=== PATIENT | male | born 1965 | race Caucasian/White ===

== ENCOUNTER 2020-01-21 11:13 | Outpatient (REF) | payer OTHER, SELFPAY | END 2020-01-21 11:14 | disposition home or self-care (01) | LOC: HO.LAB 11:13 | PROVIDERS: Visit Provider Internal Medicine | DX: Z20.828 Contact with and (suspected) exposure to other viral communicable diseases (principal) | CPT/HCPCS: 87635 ==

== ENCOUNTER 2020-05-13 06:06 | Outpatient (REF) | payer OTHER, SELFPAY ==
[2020-05-13 07:17] LABS: MANUAL DIFF FLAG NO
[2020-05-13 07:20] LABS: Basophils Percent Auto 0.5 % (0-2); Eosinophils Absolute Auto 0.1 X10*3/uL (0.0-0.4); Eosinophils Percent Auto 1.7 % (0-4); Hematocrit 46.5 % (42-52); Hemoglobin 14.9 g/dl (14.0-18.0); Imm Gran Abs Auto 0.01 X10*3/uL (0.00-0.03); Imm Gran Pct Auto 0.1 % (0.0-0.4); Lymphocytes Absolute Auto 2.4 X10*3/uL (1.2-4.9); Lymphocytes Percent Auto 30.1 % (20-40); Mean Corpuscular Hemoglobin 26.1 pg (27.0-33.0); Mean Corpuscular Volume 81.6 fL (80-98); Mean Platelet Volume 9.3 fL (9.4-12.4); Monocytes Absolute Auto 0.8 X10*3/uL (0.1-1.2); Monocytes Percent Auto 10.1 % (2-11); Neutrophils Absolute Auto 4.5 X10*3/uL (2.0-8.3); Neutrophils Percent Auto 57.5 % (45-73); Platelet Count 315 X10*3/uL (160-400); Red Cell Distribution Width 12.9 % (11.0-16.0); White Blood Count 7.8 X10*3/uL (4.8-10.8)
[2020-05-13 07:47] LABS: Creatinine Urine 213.44 mg/dL; Microalbum/Creatinine Ratio Ur 20.6 ug/mg cr
[2020-05-13 07:50] LABS: Alanine Aminotransferase 17 U/L (0-40); Albumin Level 4.4 g/dL (3.5-5.0); Alkaline Phosphatase 100 U/L (39-117); Anion Gap 10 (12-20); Aspartate Amino Transferase 16 U/L (5-37); Bilirubin Total 0.7 mg/dL (0.0-1.0); Blood Urea Nitrogen 15 mg/dL (9-16); Calcium 9.1 mg/dL (8.4-10.2); Carbon Dioxide 32 mmol/L (22-29); Chloride 99 mmol/L (96-108); Cholesterol 164 mg/dL; Estimated Glomerular Filt Rate > 60; Glucose Random 248 mg/dL (60-115); HDL Cholesterol 41 mg/dL; LDL Cholesterol Calculated 92 mg/dl; Potassium 4.3 mmol/L (3.3-5.1); Sodium 137 mmol/L (135-145); Total Protein 7.2 g/dL (6.5-8.0); Triglycerides 159 mg/dL
[2020-05-13 08:13] LABS: Free T4 (Free Thyroxine) 0.93 ng/dL (0.71-1.85); Prostate Specific Antigen Scr 0.25 ng/mL (<0.05-4.0); Thyroid Stimulating Hormone 1.96 uIU/mL (0.32-4.0)
== END 2020-05-13 06:07 | disposition home or self-care (01) ==
LOC: HO.LAB 06:06
PROVIDERS: Visit Provider Internal Medicine
DX: E11.65 Type 2 diabetes mellitus with hyperglycemia (principal); E78.00 Pure hypercholesterolemia, unspecified; R41.89 Other symptoms and signs involving cognitive functions and awareness
CPT/HCPCS: 36415; 80053; 80061; 82043; 84153; 84439; 84443; 85025

== ENCOUNTER 2020-05-29 07:23 | Outpatient (REF) | payer OTHER, SELFPAY ==
--- NOTE | ~2020-05-29 | CT_ITS ---
EXAMINATION: CT HEAD WITHOUT CONTRAST CLINICAL INFORMATION: Symptoms involving cognitive function. COMPARISON: None TECHNIQUE: Contiguous axial imaging was performed from the skull base to vertex without intravenous administration of contrast. This CT examination was performed using dose optimization techniques as appropriate, variously including the following: *Automated exposure control *Adjustment of mA and/or kV according to patient size (this includes techniques or standardized protocols for targeted exams where dose is matched to indication/reason for exam; i.e. extremities or head) *Use of iterative reconstruction technique DLP: 835 mGy-cm FINDINGS: There is no evidence of acute intracranial hemorrhage or territorial infarction. No abnormal mass effect or midline shift is seen. Mckenzie to white matter differentiation is well preserved. No extra-axial fluid collections are identified. No acute calvarial fracture. The mastoid air cells and visualized portions of the paranasal sinuses are well aerated. CT/CT head/brain wo con IMPRESSION: No CT evidence of acute intracranial pathology.
== END 2020-05-29 07:24 | disposition home or self-care (01) ==
LOC: HO.CT 07:23
PROVIDERS: Visit Provider Internal Medicine
DX: R41.89 Other symptoms and signs involving cognitive functions and awareness (principal)
CPT/HCPCS: 70450

== ENCOUNTER 2020-06-25 09:23 | Outpatient (REF) | payer OTHER, SELFPAY | END 2020-06-25 09:24 | disposition home or self-care (01) | LOC: HO.LAB 09:23 | PROVIDERS: Visit Provider Internal Medicine | DX: Z20.822 Contact with and (suspected) exposure to COVID-19 (principal) | CPT/HCPCS: 36415; C9803; U0003; U0005 ==

== ENCOUNTER 2024-07-17 13:01 | Outpatient (AMB) | payer OTHER, SELFPAY ==
--- NOTE | 2024-07-17 13:07 | MHC.OFFWIV ---
Intake Vital Signs 07/17/24 13:08 Weight 148 lb BP 150/80 H Blood Pressure Location Lt brachial Position Sitting Pulse 74 Pulse Source Pulse Oximeter Pulse Oximetry (%) 97 Oxygen Delivery Method Room Air Intake Visit Reasons: EP Flashing in rt peripheral vision Intake Note: Patient here becaause he has been seeing flashes out of right eye for two days. Patient Tobacco Use Status: Never used Tobacco Allergies No Known Allergies Allergy (Unverified 12/19/19 14:49) pt states no food/medication a Allergy (Unknown, Uncoded 08/22/17 00:00) Do you need a note to return to daycare/school/sports/work: No HPI HPI Comments History of Present Illness Details He presents to office with vision changes Onset Monday He said St and Monday + headache. Took tylenol and was able to sleep He said minimal pain posterior head; approx 4/10 Patient noticed shorty after waking up colorful streaking to R lateral peripheral vision Constant with intermittent flashing He said he sees movements only on R lateral peripheral vision No complete vision loss Denies dizziness No congestion, ST, cough, CP or SOB PCP is Dr. Griffin No other specialists Has hx of diabetes; has been off medications for 6 years due to insurance and cost reasons Last saw PCP in 2019 telehealth. Has yet to be seen again Has not checked sugar in 6 years In office, POC [address] [facility] Medical History (Updated 07/17/24 @ 13:38 by Becky Christian PA-C) Obstructive sleep apnea Vitamin D deficiency Type 2 diabetes mellitus with hyperglycemia Anxiety and depression Psoriasis Hypercholesterolemia Surgical History (Updated 05/12/20 @ 11:46 by David Griffin MD) History of cataract surgery History of gastric bypass Social History (Updated 05/26/20 @ 11:35 by Olive Valverde CMA) Alcohol intake: never Patient Tobacco Use Status: Never used Tobacco Physical Exam Vital Signs: Last Vital Signs Pulse 74 07/17/24 13:08 BP 150/80 H 07/17/24 13:08 Pulse Ox 97 07/17/24 13:08 Oxygen Delivery Method Room Air 07/17/24 13:08 General: Non-toxic, NAD. Speaking full sentences. Skin: Warm dry throughout Eye: PERRL, EOMI. I attempted a limited non-dilated funduscopic exam and it revealed intact red reflex bilaterally. There appeared to be dilated vessels R eye but I did not appreciate any cotton wool spots of retinal hemorrhage or AV nicking. L eye revealed no obvious abormality HENT: Airway patent. Uvula midline. No pharyngeal erythema or edema. 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 Bilateral canals clear. TM non-erythematous, non-bulging. No TM perforation or hemotympanum noted. Respiratory: CTA bilaterally. No wheezes, rales or rhonchi Cardiac: RRR. No murmur Neurology: A/O. CN 2-12 grossly intact. Able to maintain balance with Rhomberg. Negative pronator drift. Able to complete finger to nose tracing bilaterally but R side pt felt that it was more difficult due to floaters seen. No aphasia or facial droop. 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 strength Gait without abnormality Psych: Good mood and affect Results AMB Random Glucose (hemocue) AMB Random Glucose (hemocue) 356 mg/dL Last Edit by Eddie Mac CCM on 07/17/24 14:05 AMB Urinalysis, Automated UA Leukoctes 0 Pilo/uL Last Edit by Eddie Mac [facility] on 07/17/24 14:07 UA Nitrite Negative Last Edit by Eddie Mac [facility] on 07/17/24 14:07 UA Urobilinogen 0.2 mg/dL Last Edit by Eddie Mac [facility] on 07/17/24 14:07 UA Protein 0 mg/dL Last Edit by Eddie Mac [facility] on 07/17/24 14:07 UA pH 6.0 Last Edit by Eddie Mac [facility] on 07/17/24 14:07 UA Blood 0 Samir/uL Last Edit by Eddie Mac [facility] on 07/17/24 14:07 UA Specific Romney 1.010 Last Edit by Eddie Mac [facility] on 07/17/24 14:07 UA Ketone Negative Last Edit by Eddie Mac [facility] on 07/17/24 14:07 UA Bilirubin 0 mg/dL Last Edit by Eddie Mac [facility] on 07/17/24 14:07 UA Glucose 1000 mg/dL Last Edit by Eddie Mac [facility] on 07/17/24 14:07 Assessment & Plan Assessment & Plan (1) Hyperglycemia: Code(s): R73.9 - Hyperglycemia, unspecified Plan: Pt is an uncontrolled diabetics off meds x 6 years He has baseline neuropathy which he said is worsening POC is 356 in office and urine is without ketones but + glucose He has not seen PCP in 4 years and was told he needed a new pt visit in March 2025. (2) Vision changes: Code(s): H53.9 - Unspecified visual disturbance Plan: Pt has been seen at [facility] for [facility] exam 6 mo ago I called Dr. Jose office for patient evaluation but they refused to see him because he no showed to their office and was discharged Pt states he used to get eye injections at [facility]. I called their office. They have not seen pt in their office in 3 years. They only accept acute visits from ophthalmologists with retinal diagnosis. They have Dr. Ohara listed as his primary eye physician. They said he needs to be seen by his primary eye MD before seeing them for acute visit. I called Dr Ohara office and they states they have not seen the patient before. I called [facility] in [place] spoke with Elisha; who said the patient is registered with them but has yet to be seen. They are located at [address] [facility], He has an appointment with them tomorrow 12:55 with MD (I gave pt work note excusing him from work tomorrow) Pt given location and time information for appoitment tomorrow and advised to bring photo ID and insurance card Fax number is [phone] and will fax this note when complete Pt and I had a long discussion in regards to his personal health journey. He agrees that he put off his health post covid due to frustration but is looking to get established back with care He is aware of how serious his eye complaint issue is and the urgent need to be seen I told pt is he did not accept appiintment tomorrow I would have sent him to ER or had him sign AMA due to need for evaluation He is aware and will monitor for loss of vision, confusion, weakness, dizziness, worsening headache,vomiting, CP or any worsening symptoms discussed and go immediately to ER Discussed he should not be driving due to medical reasons for concern of impaired vision and possibility of crash. He gave verbal understanding All questions answered at time of discharge (3) Hypertension: Code(s): I10 - Essential (primary) hypertension Qualifiers: Hypertension type: unspecified Qualified Code(s): I10 - Essential (primary) hypertension Plan: Pt informed of BP in office. Discussed serious complications of uncontrolled HTN such as CVA and [place]. Pt aware Message sent to safety and security officer in Dr Griffin office to try to get patient in sooner Coding Level of Care Code Est Pt Level 4 (48771) Diagnoses Hyperglycemia R73.9 Vision changes H53.9 Hypertension, unspecified type I10 Hypertension type: unspecified
[2024-07-17 13:08] VITALS: BP 150/80; PULSE 74; O2SAT 97
== END 2024-07-17 14:51 | disposition home or self-care (01) ==
PROVIDERS: Visit Provider Physician Assistant
DX: R73.9 Hyperglycemia, unspecified (principal); H53.9 Unspecified visual disturbance; I10 Essential (primary) hypertension; Z13.9 Encounter for screening, unspecified

== ENCOUNTER → 2024-07-17 13:01 | Outpatient (BNVA) | payer OTHER, SELFPAY | PROVIDERS: Visit Provider Physician Assistant | DX: H53.9 Unspecified visual disturbance (principal); E11.9 Type 2 diabetes mellitus without complications; I10 Essential (primary) hypertension | CPT/HCPCS: 81003; 82948 ==

== ENCOUNTER 2024-07-17 21:10 | Emergency (ER) | payer OTHER, SELFPAY ==
--- NOTE | 2024-07-17 | ECG_ITS ---
Test Reason : HTN Blood Pressure : */* mmHG Vent. Rate : 78 BPM Atrial Rate : 78 BPM P-R Int : 180 ms QRS Dur : 94 ms QT Int : 368 ms P-R-T Axes : 35 7 32 degrees QTcB Int : 419 ms Normal sinus rhythm Normal ECG When compared with ECG of 04-May-2016 09:48, No significant change was found Referred By: Generic ED Physician Electronically Signed By: ROSALES PARKER MD
--- NOTE | ~2024-07-17 | CT_ITS ---
CLINICAL HISTORY: headache CT head without contrast Comparison: None Findings: Mild generalized cerebral and cerebellar atrophy. The size and shape of the ventricular system is within normal limits for this degree of atrophy. Mild areas of low-attenuation are seen within the periventricular and deep white matter, especially adjacent to the frontal horn of the right lateral ventricle. Area of low attenuation along the left aspect of the cerebellum suggesting encephalomalacia. Mcknezie-white differentiation is otherwise well preserved. No midline shift or mass effect. No intracranial hemorrhage. No acute calvarial lesions. IMPRESSION: Chronic changes as above. No acute intracranial finding. This document has been electronically signed by: Sam Infante MD on 07/18/2024 01:06:22
[2024-07-17 21:13] VITALS: BP 176/98; PULSE 79; RESP 16; TEMP 36; O2SAT 99; BMI 25.4
--- NOTE | 2024-07-17 21:23 | PC.NURSE ---
strength equal and strong BUE, BLE. no focal deficits/droop noted. daughter concerned for gait/slurred speech not noted in triage. Dr Prajapati made aware of sx. rn physician office aware. blood work/ekg being obtained in triage and pt will be in ed22 after.
[2024-07-17 21:33] LABS: MANUAL DIFF FLAG NO
[2024-07-17 21:35] LABS: Glucose, Whole Blood 421 mg/dL (60-115)
[2024-07-17 21:35] LABS: Basophils Percent Auto 0.5 % (0-2); Eosinophils Absolute Auto 0.1 X10*3/uL (0.0-0.4); Hematocrit 43.3 % (42.0-52.0); Hemoglobin 14.3 g/dl (14.0-18.0); Imm Gran Abs Auto 0.02 X10*3/uL (0.00-0.03); Imm Gran Pct Auto 0.3 % (0.0-0.4); Lymphocytes Absolute Auto 2.8 X10*3/uL (1.2-4.9); Lymphocytes Percent Auto 36.2 % (20-40); Mean Corpuscular Hemoglobin 25.5 pg (27.0-33.0); Mean Corpuscular Volume 77.2 fL (80.0-98.0); Monocytes Absolute Auto 0.7 X10*3/uL (0.1-1.2); Monocytes Percent Auto 8.9 % (2-11); Neutrophils Absolute Auto 4.2 x10*3/uL (2.0-8.3); Neutrophils Percent Auto 53.1 % (45-73); Platelet Count 307 X10*3/uL (160-400); Red Blood Count 5.61 X10*6/uL (4.60-5.80); Red Cell Distribution Width 13.1 % (11.0-16.0); White Blood Count 7.9 X10*3/uL (4.8-10.8)
--- NOTE | 2024-07-17 21:46 | PC.NURSE ---
pt reporting numbness and tingling in feet bilateral. no meds for diabetes for 6 years. too expensive. POC >400. no hx of headaches/migraines. feels unsteady on feet, compensation for moving vision
[2024-07-17 21:52] LABS: Alanine Aminotransferase 20 U/L (0-40); Albumin Level 4.3 g/dL (3.5-5.0); Alkaline Phosphatase 149 U/L (39-117); Anion Gap 13 (12-20); Aspartate Amino Transferase 17 U/L (5-37); Bilirubin Total 0.3 mg/dL (0.0-1.0); Blood Urea Nitrogen 12 mg/dL (9-16); Carbon Dioxide 25 mmol/L (22-29); Chloride 100 mmol/L (96-108); Creatinine Clr Calc Pharmacy 70.5; Estimated Glomerular Filt Rate > 60; Glucose Random 468 mg/dL (60-115); Sodium 134 mmol/L (135-145); Total Protein 7.3 g/dL (6.5-8.0)
[2024-07-17 21:59] LABS: Troponin-I High Sensitivity < 2.7 ng/L (<3.5-35.0)
--- NOTE | 2024-07-17 23:31 | ED.GENADULT ---
HPI - General Adult General Chief complaint: General Medical Stated complaint: changes in vision, high bp and blood sugar Time Seen by Provider: 07/17/24 23:31 History of Present Illness ED Provider: Marta BRITTON narrative: The patient is a 58-year-old male with a history of type 2 diabetes who has been off his medications for about 2 or 3 years. He used to be on metformin and insulin. He says that during COVID he became discouraged with regard to his health and stopped seeing doctors and stopped taking any medications. Last weekend he has a headache on Monday and Monday. Three days ago on Monday the headache was somewhat better but he started to experience flashing lights in his right peripheral vision which he thinks are originating from his right eye. He says that his visual problems over the last few days has been intermittent flashing in the right half of his vision. If he covers his right eye he still feels that he sees the flashes in darkness. He does not feel that his vision is impaired otherwise accept that the flashing lights interfere with the his ability to see things on the right side of his field of vision in his right eye. His left eye vision seems fine according to him. He has had a headache but no neck stiffness. He has had no fever, sweats, chills. No cough or sputum. Earlier today the patient went to an urgent care appointment here at the hospital. He was evaluated with regard to his visual symptoms. The provider who saw him clearly made a great deal of effort to try to get the patient seen by an hydraulic specialist. Ultimately they succeeded in getting the patient an appointment on July 18 at the [facility] in [place] at 12:55 PM. Related Data Previous Rx's ?Medication ?Instructions ?Recorded flash glucose scanning reader #1 ea 05/12/20 (FreeStyle Roberto 14 Day [place]) flash glucose sensor (FreeStyle #6 ea 05/12/20 Roberto 14 Day Sensor kit) pen needle, diabetic 31 gauge x #100 ea 07/07/2006/16 (BD Ultra-Fine Mini Pen Needle) metformin 500 mg tablet 500 mg PO BID #60 tabs 07/18/24 Allergies Allergy/AdvReac Type Severity Reaction Status Date / Time No Known Allergies Allergy Verified 07/17/24 21:16 Review of Systems Review of Systems: Yes all other systems are reviewed and are negative PMFSH Past Medical History Medical History (Updated 07/18/24 @ 03:20 by Chetan Lozano MD) Obstructive sleep apnea Vitamin D deficiency Type 2 diabetes mellitus with hyperglycemia Anxiety and depression Psoriasis Hypercholesterolemia Surgical History (Updated 05/12/20 @ 11:46 by David Griffin MD) History of cataract surgery History of gastric bypass Social History Social History (Updated 05/26/20 @ 11:35 by Olive Valverde CMA) Alcohol intake: never Patient Tobacco Use Status: Never used Tobacco Physical Exam ED Vital Signs: Vital Signs - 24 hr 07/17/24 21:13 07/18/24 00:01 07/18/24 02:19 Temperature 96.8 F 98.6 F 98.4 F Pulse Rate 79 76 72 Respiratory Rate 16 18 16 Blood Pressure 176/98 H 143/83 H 133/76 Pulse Oximetry 99 96 97 Oxygen Delivery Method Room Air Room Air Room Air 07/18/24 03:33 07/18/24 03:33 Temperature 98.0 F 98.0 F Pulse Rate 78 78 Respiratory Rate 18 18 Blood Pressure 152/82 H 152/82 H Pulse Oximetry 97 97 Oxygen Delivery Method Room Air Room Air BMI result Body Mass Index 25.4 Const Other: The patient is awake and alert. He is a chronically ill-appearing 58-year-old but he does not appear obviously acutely ill. He is pleasant and cooperative. He is in no respiratory distress and although he is complaining of headache he does not seem in obvious discomfort. He is ambulatory without difficulty. HENMT Other: The face is symmetrical. Mucous membranes are moist. The posterior pharynx is unremarkable. Eyes Other: Pupils are round, equal, and reactive to light. Visual acuity is 20/30 in the right eye and 20/25 in the left eye. Extraocular movements are intact. Visual field testing revealed what I thought might be a variable decreased perception of the lateral visual field of the right eye. Neck Neck: Yes normal visual inspection, Yes full ROM, Yes no lymphadenopathy, Yes no meningeal signs and Yes no JVD Resp Effort & Inspection: normal respiratory effort and prolonged expiratory phase Cardio Rate: regular rate Rhythm: regular rhythm Heart sounds: S1 normal heart sound present and S2 normal heart sound present GI Other: Abdomen is soft and nontender Skin Other: Skin is pale and dry Neuro Other: The patient is awake and alert with a normal mental status. He is pleasant and cooperative. He is complaining of a headache but he does not appear in distress and he has a supple neck. Pupils are round equal. Extraocular movements are intact. The patient seems to have some variably diminished vision in the lateral visual field of the right eye. The patient seems to say that when he has a lot of flashes and floaters his ability to perceive the lateral visual field with the right eye is diminished. He seems to have no difficulty with the the left eye with regard to his visual becker. Strength is symmetrical in his extremities. There is no pronator drift. His gait is steady. Finger-nose testing is normal. General: no meningeal signs Extrem Other: No peripheral edema Medications Administered Discontinued Medications Generic Name Dose Route Start Last Admin Trade Name Freq PRN Reason Stop Dose Admin Diphenhydramine HCl 25 mg 07/18/24 00:00 07/18/24 00:13 Diphenhydramine Hcl 50 Mg/Ml Vial IVPUSH 07/18/24 00:01 25 mg ONCE ONE Administration Sodium Chloride 1,000 mls @ 999 mls/hr 07/17/24 23:45 07/18/24 01:31 Ns IV 07/18/24 00:45 Infused .Q1H1M KYLER Infusion Sodium Chloride 1,000 mls @ 999 mls/hr 07/18/24 01:30 07/18/24 03:26 Ns IV 07/18/24 02:30 Infused .Q1H1M KYLER Infusion Ketorolac Tromethamine 10 mg 07/18/24 01:30 07/18/24 02:18 Ketorolac Tromethamine 15 Mg/Ml Vial IVPUSH 07/18/24 01:31 10 mg ONCE ONE Administration Metoclopramide HCl 10 mg 07/18/24 00:00 07/18/24 00:14 Metoclopramide Hcl 10 Mg/2 Ml Vial IVPUSH 07/18/24 00:01 10 mg ONCE ONE Administration Medical Decision Making Medical Decision Making [facility] Narrative: The patient is a 58-year-old male with a history of type 2 diabetes who has avoided all medical care and medication for proximally 3 or 4 years. In the past he has been on insulin and metformin for glucose control. The patient presents complaining of a headache and also flashes and floaters in the lateral visual field of the right eye. The flashes and floaters has been present for 2-3 days. The headache has been present for about 5 days. The patient is hyperglycemic but I suspect he has been hyperglycemic for some time given his lack of any treatment for his longstanding type 2 diabetes. The patient has a good visual acuity in the right eye but he seems to have some decreased vision in the lateral visual becker. The patient's description of his symptoms suggests that he might have a retinal detachment or vitreous hemorrhage but a bedside ultrasound did not show any obvious signs of either a detached retina or any debris in the vitreous. The patient has a headache that responded to treatment with metoclopramide, diphenhydramine, and ketorolac. A head CT is negative. The patient was given IV fluids to address his hyperglycemia. His blood sugar came down after the 1 L. I then ordered a 2 L but the patient ate a meal while the 2 L was infusing and the patient's blood sugar went up again. My overall impression is that the patient's blood sugar has probably been chronically high for some time. I will represcribe metformin for him. The patient has an ophthalmology appointment in several hours later today on . He will be discharged with instructions to clam picker his prescription for metformin and begin this medication in morning and to make sure he keeps the ophthalmology appointment. He should also do his best to follow up with his PCP, Dr. David Griffin, to resume flow restorationism of his medications for his chronic medical conditions. Lab Data 07/17/24 21:27 07/17/24 21:27 Labs: Lab Results 07/17/24 07/17/24 07/18/24 Range/Units 21:20 21:27 01:35 WBC 7.9 (4.8-10.8) X10*3/uL RBC 5.61 (4.60-5.80) X10*6/uL Hgb 14.3 (14.0-18.0) g/dl Hct 43.3 (42.0-52.0) % MCV 77.2 L (80.0-98.0) fL MCH 25.5 L (27.0-33.0) pg MCHC 33.0 (31.0-36.0) g/dl RDW 13.1 (11.0-16.0) % Plt Count 307 (160-400) X10*3/uL MPV 9.0 L (9.4-12.4) fL Immature Gran % (Auto) 0.3 (0.0-0.4) % Neut % (Auto) 53.1 (45-73) % Lymph % (Auto) 36.2 (20-40) % [place] % (Auto) 8.9 (2-11) % Eos % (Auto) 1.0 (0-4) % Baso % (Auto) 0.5 (0-2) % Lymph # (Auto) 2.8 (1.2-4.9) X10*3/uL [place] # (Auto) 0.7 (0.1-1.2) X10*3/uL Eos # (Auto) 0.1 (0.0-0.4) X10*3/uL Baso # (Auto) 0.0 (0.0-0.2) X10*3/uL Abs Immat Gran (auto) 0.02 (0.00-0.03) X10*3/uL Absolute Neuts (auto) 4.2 (2.0-8.3) x10*3/uL Absolute Nucleated RBC 0.000 (0.0-0.012) X10*3/uL Nucleated RBC % (auto) 0.0 (0.0-0.2) /100WBC Sodium 134 L (135-145) mmol/L Potassium 4.0 (3.3-5.1) mmol/L Chloride 100 (96-108) mmol/L Carbon Dioxide 25 (22-29) mmol/L Anion Gap 13 (12-20) BUN 12 (9-16) mg/dL Creatinine 1.03 (0.5-1.4) mg/dL Estim Creat Clear Calc 70.5 Estimated GFR > 60 POC Glucose 421 H* 292 H (60-115) mg/dL Random Glucose 468 H* (60-115) mg/dL Calcium 9.0 (8.4-10.2) mg/dL Total Bilirubin 0.3 (0.0-1.0) mg/dL AST 17 (5-37) U/L ALT 20 (0-40) U/L Alkaline Phosphatase 149 H (39-117) U/L Troponin I High Sens < 2.7 (<3.5-35.0) ng/L Total Protein 7.3 (6.5-8.0) g/dL Albumin 4.3 (3.5-5.0) g/dL 07/18/24 Range/Units 03:22 WBC (4.8-10.8) X10*3/uL RBC (4.60-5.80) X10*6/uL Hgb (14.0-18.0) g/dl Hct (42.0-52.0) % MCV (80.0-98.0) fL MCH (27.0-33.0) pg MCHC (31.0-36.0) g/dl RDW (11.0-16.0) % Plt Count (160-400) X10*3/uL MPV (9.4-12.4) fL Immature Gran % (Auto) (0.0-0.4) % Neut % (Auto) (45-73) % Lymph % (Auto) (20-40) % [place] % (Auto) (2-11) % Eos % (Auto) (0-4) % Baso % (Auto) (0-2) % Lymph # (Auto) (1.2-4.9) X10*3/uL [place] # (Auto) (0.1-1.2) X10*3/uL Eos # (Auto) (0.0-0.4) X10*3/uL Baso # (Auto) (0.0-0.2) X10*3/uL Abs Immat Gran (auto) (0.00-0.03) X10*3/uL Absolute Neuts (auto) (2.0-8.3) x10*3/uL Absolute Nucleated RBC (0.0-0.012) X10*3/uL Nucleated RBC % (auto) (0.0-0.2) /100WBC Sodium (135-145) mmol/L Potassium (3.3-5.1) mmol/L Chloride (96-108) mmol/L Carbon Dioxide (22-29) mmol/L Anion Gap (12-20) BUN (9-16) mg/dL Creatinine (0.5-1.4) mg/dL Estim Creat Clear Calc Estimated GFR POC Glucose 420 H* (60-115) mg/dL Random Glucose (60-115) mg/dL Calcium (8.4-10.2) mg/dL Total Bilirubin (0.0-1.0) mg/dL AST (5-37) U/L ALT (0-40) U/L Alkaline Phosphatase (39-117) U/L Troponin I High Sens (<3.5-35.0) ng/L Total Protein (6.5-8.0) g/dL Albumin (3.5-5.0) g/dL Discharge Plan Discharge Clinical Impression: Vision changes, Hyperglycemia, Headache, Type 2 diabetes mellitus Patient Disposition: Home, Self-Care Additional Instructions: Please keep your appointment with the eye doctor this afternoon as scheduled. I believe this is [facility] at [address] [place] [address], at 12:55 PM. Please get their a little early. I have sent a prescription for metformin to your pharmacy. Please start taking this later today. Please stay in touch with Dr. Griffin's office to get a follow up appointment to get back on all of your regular medications. Return to the emergency room if significantly worse. Prescriptions: New metformin 500 mg tablet 500 mg PO BID Qty: 60 0RF No Action (DME) pen needle, diabetic [BD Ultra-Fine Mini Pen Needle] 31 gauge x 3/16 needle See Rx Instructions .ROUTE .MEDSUPPLY Qty: 100 3RF Rx Instructions: As directed inject Tresiba once a day (DME) FreeStyle Roberto 14 Day [place] Misc See Rx Instructions .ROUTE .MEDSUPPLY Qty: 1 0RF Rx Instructions: As directed (DME) FreeStyle Roberto 14 Day Sensor Kit See Rx Instructions .ROUTE .MEDSUPPLY Qty: 6 3RF Rx Instructions: As directed Referrals: [facility] [place] [Outside] (visual flashes) David Griffin MD [Physician] - (Type 2 diabetes, hyperglycemia) Interventions: ED Discharge Assessment Last Done: 07/18/24 03:33 Discharge Date/Time: 07/18/24 03:34 Print Language: Cymro
[2024-07-18 00:01] VITALS: BP 143/83; PULSE 76; RESP 18; TEMP 37; O2SAT 96
[2024-07-18] MEDS: 0.9 % Sodium Chloride 1,000 ML 999 ML IV ×2 (00:13→02:19)
[2024-07-18] MEDS: diphenhydrAMINE HCL 50 MG/ML VIAL 25 MG IVPUSH (00:13)
[2024-07-18] MEDS: Metoclopramide HCl 10 MG/2 ML VIAL IVPUSH (00:14)
[2024-07-18 01:38] LABS: Glucose, Whole Blood 292 mg/dL (60-115)
[2024-07-18] MEDS: Ketorolac Tromethamine 15 MG/ML VIAL 10 MG IVPUSH (02:18)
[2024-07-18 02:19] VITALS: BP 133/76; PULSE 72; RESP 16; TEMP 36.9; O2SAT 97
[2024-07-18 03:27] LABS: Glucose, Whole Blood 420 mg/dL (60-115)
[2024-07-18 03:33] VITALS: BP 152/82; PULSE 78; RESP 18; TEMP 36.7; O2SAT 97
== END 2024-07-18 03:34 | disposition home or self-care (01) ==
PROVIDERS: Emergency Provider Emergency Medicine
DX: E11.65 Type 2 diabetes mellitus with hyperglycemia (principal); H53.9 Unspecified visual disturbance; R51.9 Headache, unspecified; E78.00 Pure hypercholesterolemia, unspecified; Z91.148 Patient's other noncompliance with medication regimen for other reason
CPT/HCPCS: 36415; 70450; 80053; 82947; 84484; 85025; 93005; 96361; 96374; 96375; 99285; J1200; J1885; J2765

== ENCOUNTER → 2024-07-17 21:20 | Outpatient (BNV) | payer OTHER, SELFPAY | PROVIDERS: Emergency Provider Emergency Medicine; Visit Provider Internal Medicine Cardiovascular Disease | DX: I10 Essential (primary) hypertension (principal) | CPT/HCPCS: 93010 ==

== ENCOUNTER → 2024-07-18 00:02 | Outpatient (BNV) | payer OTHER, SELFPAY | PROVIDERS: Emergency Provider Emergency Medicine; Visit Provider Radiology Diagnostic Radiology | DX: R51.9 Headache, unspecified (principal) | CPT/HCPCS: 70450 ==

== ENCOUNTER 2024-07-25 08:42 | Outpatient (AMB) | payer OTHER, SELFPAY ==
--- NOTE | 2024-07-25 08:58 | A.OFFPC_ITS ---
Vital Signs 07/25/24 08:59 Height 5 ft 5.25 in Weight 157 lb 3.2 oz BMI 26.0 BP 136/68 Blood Pressure Location Lt brachial Position Sitting Respiration 16 Pulse 71 Pulse Source Pulse Oximeter Temp 97.9 F Temp Source Oral Pulse Oximetry (%) 98 Oxygen Delivery Method Room Air Intake Visit Reasons: re-establish care not seen since 2020 Intake Note: Patient is a new patient here to re-establish care; Last seen in 2020. Fab[employer] Access[employer] Estimator Required: No Accompanied by: Self / Same As Patient Allergies No Known Allergies Allergy (Verified 07/25/24 09:22) Medication List - Last Reconciled 07/25/24 by GIANCARLO Sanchez flash glucose scanning reader (FreeStyle Roberto 14 Day [place]) As directed flash glucose sensor (FreeStyle Roberto 14 Day Sensor kit) As directed metformin 500 mg PO BID pen needle, diabetic (BD Ultra-Fine Mini Pen Needle) As directed inject Tresiba once a day Tobacco use date assessed: 07/25/24 Dental Screening Dental Screen Date: 07/25/24 Did you have a dental visit in the last 12 months?: No Did you have a dental problem in the last 6 months where you did not have access to dental care?: No Was dental information given to patient?: No HPI re-establish care not seen since 2020 HPI Details The patient is a 58-year-old male presenting with concerns primarily related to his diabetes management and associated complications. He has a history of Type 2 Diabetes Mellitus and recently restarted metformin due to a significant gap in his treatment post-COVID, when he lost access to insulin therapy because of financial constraints. He reports restarting metformin 500 mg twice daily after a recent visit to the emergency room. Blood sugar levels were significantly elevated at that time, prompting the renewed therapy. The patient describes an incident last characterized by headaches that persisted from Monday to Monday, culminating in visual disturbances on the right side. This episode led him to seek care, consisting first of an evaluation by an transport specialist who noted vein leakage in the back of his eyes, a condition determined to require intravitreal injections. He is scheduled for a series of injections in both eyes, beginning today. Additionally, the patient has a history of sleep apnea, which was linked to previous obesity and treated with CPAP machine usage following bariatric surgery. The patient discontinued the use of a CPAP machine after weight loss associated with gastric bypass. In the realm of skin issues, the patient suffers from psoriasis, which was previously managed under dermatological care. However, lapses in insurance coverage interrupted this care. The condition is widespread across his body, including his back, elbows, and lower extremities. kg 71x 0.2 will start the patient on 14 units of LANTUS, and increased, and increased metfomin to 1000 mg bid PFSH Medical History Obstructive sleep apnea Vitamin D deficiency Type 2 diabetes mellitus with hyperglycemia Anxiety and depression Psoriasis Hypercholesterolemia Surgical History History of cataract surgery History of gastric bypass Family History Father No problems noted. Mother Diabetes Son No problems noted. Son No problems noted. Daughter No problems noted. Social History Housing: Apartment Alcohol intake: never Patient Tobacco Use Status: Never used Tobacco e-Cigarette/Vaping Use: Never Used service: No Current occupational status: employed Current occupation: [employer] Cognitive needs: No Hearing needs: No Vision needs: Yes (Glasses) Questionnaire PHQ-9 Over the last 2 weeks, how often have you been bothered by any of the following problems? 1. Little interest or pleasure in doing things: not at all 2. Feeling down, depressed, or hopeless: not at all 3. Trouble falling or staying asleep, or sleeping too much: several days 4. Feeling tired or having little energy: not at all 5. Poor appetite or overeating: not at all 6. Feeling bad about yourself - or that you are a failure or have let yourself or your family down: not at all 7. Trouble concentrating on things, such as reading the newspaper or watching television: not at all 8. Moving or speaking so slowly that other people could have noticed. Or the opposite - being so fidgety or restless that you have been moving around a lot more than usual: not at all 9. Thoughts that you would be better off or of hurting yourself in some way: not at all Total score: 1 Depression Screening Interpretation: Negative Depression Screening Done: Yes 58877 - PHQ-9 Billing: Yes Source: Developed by Drs. Raad Good, Edilma Helm, Urbano Patel and colleagues, with an educational sophia from [employer]. Thrive Questionnaire Date Thrive assessed: 07/25/24 I am a: Patient What is your living situation today?: I have a steady place to live Within the past 12 months, did the food you bought not last and you didn't have the money to get more?: Often true Within the past 12 months, did you worry whether your food would run out before you got money to buy more?: Often true Do you have trouble paying for medicines?: Yes Do you have trouble getting transportation to medical appointments?: No Do you have trouble paying your heating and electricity bill?: No Do you have trouble taking care of your child, family member or friend?: No Do you have trouble with day-to-day activities such as bathing, preparing meals, shopping, managing finances, etc.?: No Are you currently unemployed and looking for a job?: No Are you interested in more education?: No Please select the resources that you would like help with: Paying for medicine Currently or been in a relationship where the following occur: No concerns reported THRIVE Score: 2 AUDIT C Alcohol Use Questionnaire (AUDIT-C) 1. How often do you have a drink containing alcohol?: Never 3. How often do you have six or more drinks on one occasion?: Never Total Score: 0 Score Reviewed/Action Taken: No JONO-7 AMB Questionnaire JONO-7 Date JONO - 7 assessed: 07/25/24 Feeling nervous, anxious, or on edge: 0 = Not at all Not being able to stop or control worryin = Not at all Worrying too much about different things: 0 = Not at all Trouble relaxin = Not at all Being so restless that it is hard to sit still: 0 = Not at all Becoming easily annoyed or irritable: 0 = Not at all Feeling afraid as if something awful might happen: 0 = Not at all Total JONO-7 score (0-4 normal; 5-9 mild; 10-14 moderate; 15-21 severe): 0 Source: Developed by Drs. Raad Good, Edilma Helm, Urbano Patel and colleagues, with an educational sophia from [employer]. JONO-7 Assessment Billing JONO-7 Assessment Tool: JONO-7 Assessment 18701 Review of Systems Const Denies headache(s) Eyes Reports change in vision (ongoing eye injections) ENT Denies vertigo, Denies dizziness, Denies headache(s) and Denies sore throat Card Denies chest pain, Denies leg edema and Denies lightheadedness Resp Denies cough, Denies hemoptysis and Denies wheezing GI Denies abdominal pain, Denies melena, Denies constipation, Denies diarrhea and Denies vomiting Denies dysuria, Denies urinary frequency and Denies urinary urgency Musc Denies arthralgias, Denies joint swelling, Reports numbness (numbness in toes on bilateral feet) and Denies tingling Neuro Denies Abnormal speech present, Denies vertigo, Denies dizziness, Denies headache(s), Denies memory loss, Reports numbness (numbness in toes on bilateral feet) and Denies tingling Psych Denies anxiety, Denies depression, Denies memory loss and Denies panic attacks John/Lymph Denies easy bleeding and Denies easy bruising Aller/Immun Denies wheezing Physical exam (Primary Care) Vital Signs: Last Vital Signs Temp 97.9 F 07/25/24 08:59 Pulse 71 07/25/24 08:59 Resp 16 07/25/24 08:59 BP 136/68 07/25/24 08:59 Pulse Ox 98 07/25/24 08:59 Oxygen Delivery Method Room Air 07/25/24 08:59 BMI result Body Mass Index 26.0 Tobacco/Smoking Status: Tobacco use Status Tobacco use date assessed 07/25/24 07/25/24 09:08 Patient Tobacco Use Status Never used Tobacco 07/25/24 09:08 e-Cigarette/Vaping Use Never Used 07/25/24 09:08 PHQ-9: PHQ-9 Score PHQ-9: Total score 1 07/25/24 09:24 Depression Screening Interpretation: Negative Thrive Assessment: Date of Thrive Assessment Date Thrive assessed 07/25/24 07/25/24 09:08 Currently or been in a relationship where the following occur: No concerns reported Const General: healthy appearing, no acute distress, alert and awake Nutritional Appearance: well nourished Orientation/consciousness: oriented to person, oriented to place and oriented to time HENMT Ears: external ears normal General nose exam: Normal external nose present Eyes Conjunctivae: conjunctivae normal Sclerae: sclerae normal Pupils: Equal, round and reactive pupils present Neck Neck: Yes no lymphadenopathy and Yes no JVD Thyroid: Thyroid normal Carotids: no bruits Resp Effort & Inspection: normal respiratory effort and not tachypneic Auscultation: no crackles, no rales, no rhonchi and no wheezes Cardio Rate: regular rate Rhythm: regular rhythm Heart sounds: no murmurs and normal S1 and S2 GI Palpation (GI): Soft to palpation and nontender Auscultation: normal bowel sounds Skin General skin exam: dry skin Lesions: lesion noted (scaly patches in on left elbow, lower back and bilateral lower legs) Neuro General: oriented to person, oriented to place and oriented to time Cranial nerves: Yes Equal, round and reactive pupils present Speech: No Abnormal speech present Gait exam (Neuro): Normal gait present Motor exam (neuro): no tremor noted Extrem Right upper extremity: full ROM Left upper extremity: full ROM Right lower extremity: full ROM; no edema Left lower extremity: full ROM; no edema Psych Mental Status: mental status grossly normal Speech and movement: Normal speech and movement present Affect: normal affect Attitude: cooperative Thought process: Normal thought process present Results AMB Hemoglobin A1c AMB Hemoglobin A1c > 14.0 % Last Edit by Socorro Rivera CMA on 07/25/24 09:53 Coding Level of Care Code New Pt Level 4 (11914) Diagnoses Type 2 diabetes mellitus with hyperglycemia, without long-term current use of insulin E11.65 Diabetes mellitus assistant terminal manager insulin use: without alf use Obstructive sleep apnea G47.33 History of gastric bypass Z98.84 Hypertension, unspecified type I10 Hypertension type: unspecified Vision changes H53.9 Hyperglycemia R73.9 Psoriasis L40.9 Additional Codes JONO-7 Assessment Billing - JONO-7 Assessment Tool: JONO-7 Assessment 98798 ([id number]) PHQ-9 - 86235 - PHQ-9 Billing: Yes ([id number]) Time Spent (min) 41 Assessment & Plan Assessment & Plan (1) Type 2 diabetes mellitus with hyperglycemia: Code(s): E11.65 - Type 2 diabetes mellitus with hyperglycemia Category: Medical Qualifiers: Diabetes mellitus assistant terminal manager insulin use: without assistant terminal manager use Qualified Code(s): E11.65 - Type 2 diabetes mellitus with hyperglycemia (2) Obstructive sleep apnea: Code(s): G47.33 - Obstructive sleep apnea (adult) (pediatric) Category: Medical (3) History of gastric bypass: Comment: Dr. Espinosa laparoscopic Eddie-en-Y surgery September 2016 Code(s): Z98.84 - Bariatric surgery status Category: Surgical (4) Hypertension: Code(s): I10 - Essential (primary) hypertension Category: Medical Qualifiers: Hypertension type: unspecified Qualified Code(s): I10 - Essential (primary) hypertension (5) Vision changes: Code(s): H53.9 - Unspecified visual disturbance Category: Medical (6) Hyperglycemia: Code(s): R73.9 - Hyperglycemia, unspecified Category: Medical (7) Psoriasis: Code(s): L40.9 - Psoriasis, unspecified Category: Medical Plan The plan focuses on addressing the elevated hemoglobin A1c through insulin therapy, continuing metformin, and enhancing compliance. Metformin dose is to be increased due to the severity of diabetic indices. 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 Addressing sleep apnea remains contingent upon symptom recurrence. Essentially, the management approach caters to the patient's current medical and financial circumstances, aiming to optimize control and prevent further complications. The patient blood pressure was within goal in office, will continue to monitor. Patient was informed and verbally consented to the use of an ambient scribe for clinic note documentation during this visit. Orders: Orders AMB Hemoglobin A1c Today E11.65 - Type 2 diabetes mellitus with hyperglycemia Medications: New insulin glargine (Lantus Solostar U-100 Insulin) 14 units (0.14 mL) subcut QAM 15 mL 3RF E11.65 - Type 2 diabetes mellitus with hyperglycemia, R73.9 - Hyperglycemia, unspecified lancets (FreeStyle Lancets) As directed check blood sugar 4 times a day 100 ea 3RF E11.65 - Type 2 diabetes mellitus with hyperglycemia, R73.9 - Hyperglycemia, unspecified blood sugar diagnostic (FreeStyle Lite Strips) As directed check blood sugar 4 times a day 100 ea 3RF E11.65 - Type 2 diabetes mellitus with hyperglycemia, R73.9 - Hyperglycemia, unspecified flash glucose sensor As directed check blood sugar 4 times a day 1 ea 1RF E11.65 - Type 2 diabetes mellitus with hyperglycemia, R73.9 - Hyperglycemia, unspecified Changed From metformin 500 mg PO BID 60 tabs 0RF E11.65 - Type 2 diabetes mellitus with hyperglycemia, R73.9 - Hyperglycemia, unspecified To metformin 1,000 mg (2 x 500 mg) PO BID 30 days 120 tabs 3RF E11.65 - Type 2 diabetes mellitus with hyperglycemia, R73.9 - Hyperglycemia, unspecified Patient Instructions: - Start insulin at 14 units daily (long-acting) therapy as directed and check your blood sugar levels consistently. - Continue taking metformin as prescribed; the dosage has been increased for better blood sugar control. - Maintain appointments for the eye injections to manage your retinopathy. - Avoid sugary drinks and keep a balanced diet to help manage diabetes. - Keep track of your blood pressure readings at home due to current fluctuations. - Follow up with the clinic in four weeks for reevaluation of your diabetes management plan.
[2024-07-25 08:59] VITALS: BP 136/68; PULSE 71; RESP 16; TEMP 36.6; O2SAT 98; BMI 26.0
== END 2024-07-25 09:54 | disposition home or self-care (01) ==
DX: E11.65 Type 2 diabetes mellitus with hyperglycemia (principal); G47.33 Obstructive sleep apnea (adult) (pediatric); Z98.84 Bariatric surgery status; I10 Essential (primary) hypertension; H53.9 Unspecified visual disturbance; R73.9 Hyperglycemia, unspecified; L40.9 Psoriasis, unspecified

== ENCOUNTER → 2024-07-25 08:42 | Outpatient (BNVA) | payer OTHER, SELFPAY | DX: E11.65 Type 2 diabetes mellitus with hyperglycemia (principal); G47.33 Obstructive sleep apnea (adult) (pediatric); I10 Essential (primary) hypertension; H53.9 Unspecified visual disturbance; L40.9 Psoriasis, unspecified; Z79.84 Long term (current) use of oral hypoglycemic drugs; Z98.84 Bariatric surgery status | CPT/HCPCS: 83036; 96127 ==

== ENCOUNTER 2024-08-22 08:58 | Outpatient (AMB) | payer OTHER, SELFPAY ==
--- NOTE | 2024-08-22 09:05 | MHC.PC.OV ---
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 Accompanied by: Self / Same As Patient Allergies No Known Allergies Allergy (Verified 08/22/24 09:37) Medication List - Last Reconciled 08/22/24 by GIANCARLO Sanchez blood sugar diagnostic (FreeStyle Lite Strips) As directed check blood sugar 4 times a day blood-glucose meter (FreeStyle Lite Meter kit) As directed flash glucose sensor As directed check blood sugar 4 times a day insulin glargine (Lantus Solostar U-100 Insulin) 14 units (0.14 mL) subcut QAM lancets (FreeStyle Lancets) As directed check blood sugar 4 times a day metformin 1,000 mg (2 x 500 mg) PO BID 30 days pen needle, diabetic (BD Ultra-Fine Mini Pen Needle) As directed inject Tresiba once a day Tobacco use date assessed: 08/22/24 Dental Screening Dental Screen Date: 08/22/24 Did you have a dental visit in the last 12 months?: Yes Did you have a dental problem in the last 6 months where you did not have access to dental care?: No Was dental information given to patient?: Patient has dentist HPI DM/HTN HPI Details The patient is a 58-year-old male who is presenting follow up appointment for diabetes mellitus, HTN He has not started taking his insulin as yet; he was waiting on his diabetic teaching Patient who visited with the nursing today for diabetic teaching. Reports that he feels informed and will start taking his insulin. He was ordered Lantus 14 units once a day. He is currently on metformin a 1000 mg b.i.d.. Blood sugar 236 in office. Reports that his readings has been in the low 300s on metformin. Expecting to see an improvement once the patient starts his insulin. Given that his last A1c was greater than 14%. Patient blood pressure is elevated in office. Reports that he has been taking it at home and his readings were somewhat better Explained to the patient that he should be on a small dose of ESAU for renal protection either way We will start the patient on lisinopril 5 mg daily and have him return in 4 weeks for blood pressure to check/nurse visit Denies shortness of breath, chest pain, heart palpitation, or dizziness No abdominal pain/change in bowel habits Denies urinary symptoms COUNTS INCLUDE 234 BEDS AT THE [facility] Medical History Obstructive sleep apnea Vitamin D deficiency Type 2 diabetes mellitus with hyperglycemia Anxiety and depression Psoriasis Hypercholesterolemia Surgical History History of cataract surgery History of gastric bypass Family History Father No problems noted. Mother Diabetes Son No problems noted. Son No problems noted. Daughter No problems noted. Social History Housing: Apartment Alcohol intake: never Patient Tobacco Use Status: Never used Tobacco e-Cigarette/Vaping Use: Never Used service: No Current occupational status: employed Current occupation: [employer] at [employer] Cognitive needs: No Hearing needs: No Vision needs: Yes (Glasses) Questionnaire Thrive Questionnaire Date Thrive assessed: 08/22/24 I am a: Patient What is your living situation today?: I have a steady place to live Within the past 12 months, did the food you bought not last and you didn't have the money to get more?: Often true Within the past 12 months, did you worry whether your food would run out before you got money to buy more?: Often true Do you have trouble paying for medicines?: Yes Do you have trouble getting transportation to medical appointments?: No Do you have trouble paying your heating and electricity bill?: No Do you have trouble taking care of your child, family member or friend?: No Do you have trouble with day-to-day activities such as bathing, preparing meals, shopping, managing finances, etc.?: No Are you currently unemployed and looking for a job?: No Are you interested in more education?: No Please select the resources that you would like help with: Paying for medicine Currently or been in a relationship where the following occur: No concerns reported THRIVE Score: 2 AUDIT C Alcohol Use Questionnaire (AUDIT-C) 1. How often do you have a drink containing alcohol?: Never Total Score: 0 Score Reviewed/Action Taken: No JONO-7 AMB Questionnaire JONO-7 Date JONO - 7 assessed: 07/25/24 Source: Developed by Drs. Raad Good, Edilma Helm, Urbano Patel and colleagues, with an educational sophia from [employer]. Review of Systems Const Reports no additional complaints Eyes Reports no additional complaints ENT Denies vertigo, Denies dizziness and Denies sore throat Card Denies chest pain, Denies leg edema and Denies lightheadedness Resp Denies cough, Denies hemoptysis and Denies wheezing GI Denies abdominal pain, Denies melena, Denies constipation, Denies diarrhea and Denies vomiting Denies dysuria, Denies urinary frequency and Denies urinary urgency Neuro Denies Abnormal speech present, Denies vertigo and Denies dizziness John/Lymph Denies easy bleeding and Denies easy bruising Aller/Immun Denies wheezing Physical exam (Primary Care) Vital Signs: Last Vital Signs Temp 98.1 F 08/22/24 09:08 Pulse 88 08/22/24 09:08 Resp 16 08/22/24 09:08 BP 140/78 H 08/22/24 09:08 Pulse Ox 99 08/22/24 09:08 Oxygen Delivery Method Room Air 08/22/24 09:08 BMI result Body Mass Index 27.1 Tobacco/Smoking Status: Tobacco use Status Tobacco use date assessed 08/22/24 08/22/24 09:14 Patient Tobacco Use Status Never used Tobacco 08/22/24 09:14 e-Cigarette/Vaping Use Never Used 08/22/24 09:14 Thrive Assessment: Date of Thrive Assessment Date Thrive assessed 08/22/24 08/22/24 09:14 Currently or been in a relationship where the following occur: No concerns reported Const General: healthy appearing, no acute distress, alert and awake Nutritional Appearance: well nourished Orientation/consciousness: oriented to person, oriented to place and oriented to time HENMT Ears: external ears normal General nose exam: Normal external nose present Eyes Conjunctivae: conjunctivae normal Sclerae: sclerae normal Pupils: Equal, round and reactive pupils present Neck Neck: Yes no lymphadenopathy and Yes no JVD Thyroid: Thyroid normal Carotids: no bruits Resp Effort & Inspection: normal respiratory effort and not tachypneic Auscultation: no crackles, no rales, no rhonchi and no wheezes Cardio Rate: regular rate Rhythm: regular rhythm Heart sounds: no murmurs and normal S1 and S2 GI Palpation (GI): Soft to palpation, nontender, no hepatomegaly and no splenomegaly Auscultation: normal bowel sounds Skin General skin exam: no rashes or lesions noted and dry skin Neuro General: oriented to person, oriented to place and oriented to time Cranial nerves: Yes Equal, round and reactive pupils present Speech: No Abnormal speech present Gait exam (Neuro): Normal gait present Motor exam (neuro): no tremor noted Extrem Right upper extremity: full ROM Left upper extremity: full ROM Right lower extremity: full ROM; no edema Left lower extremity: full ROM; no edema Psych Mental Status: mental status grossly normal Speech and movement: Normal speech and movement present Affect: normal affect Attitude: cooperative Thought process: Normal thought process present Results AMB Random Glucose (hemocue) AMB Random Glucose (hemocue) 236 mg/dL Last Edit by Socorro Rivera CMA on 08/22/24 09:19 Results Reviewed Results Reviewed: Laboratory Last Values Random Glu (Clinic) 236 mg/dL 08/22/24 09:15 Laboratory Tests 07/17/24 07/17/24 14:03 21:27 WBC 7.9 RBC 5.61 Hgb 14.3 Hct 43.3 MCV 77.2 L MCH 25.5 L RDW 13.1 Plt Count 307 Sodium 134 L Potassium 4.0 Chloride 100 Carbon Dioxide 25 Anion Gap 13 BUN 12 Creatinine 1.03 Estim Creat Clear Calc 70.5 Estimated GFR > 60 Calcium 9.0 Total Bilirubin 0.3 AST 17 ALT 20 Alkaline Phosphatase 149 H Troponin I High Sens < 2.7 Total Protein 7.3 Albumin 4.3 Urine pH (Auto) 6.0 Specific [place] (Auto) 1.010 Urine Protein (Auto) 0 Glucose (UA)(Auto) 1000 Urine Ketones (Auto) Negative Urine Blood (Auto) 0 Urine Nitrite (Auto) Negative Urine Bilirubin (Auto) 0 Urine Urobilinogen (Auto) 0.2 Leukocyte Esterase (Auto) 0 Coding Level of Care Code Est Pt Level 3 (26841) Diagnoses Hypertension, unspecified type I10 Hypertension type: unspecified Type 2 diabetes mellitus with hyperglycemia, without long-term current use of insulin E11.65 Diabetes mellitus fdc insulin use: without intermediate designer use Hypercholesterolemia E78.00 Time Spent (min) 35 Assessment & Plan Assessment & Plan (1) Hypertension: Code(s): I10 - Essential (primary) hypertension Category: Medical Qualifiers: Hypertension type: unspecified Qualified Code(s): I10 - Essential (primary) hypertension Plan: Patient blood pressure is elevated in office Encouraged dash diet Start lisinopril 5 mg of the patient to return in 4 weeks for blood pressure check via nurse visit (2) Type 2 diabetes mellitus with hyperglycemia: Code(s): E11.65 - Type 2 diabetes mellitus with hyperglycemia Category: Medical Qualifiers: Diabetes mellitus intermediate designer insulin use: without intermediate designer use Qualified Code(s): E11.65 - Type 2 diabetes mellitus with hyperglycemia Plan: On last visit the patient A1c was greater than 14% he was started on metformin a 1000 mg b.i.d.. He was also ordered to be started on Lantus 14 units once daily. Diabetic teaching was set up for the patient which he received today and we will start taking his insulin. Continue to monitor blood sugar regularly We will have the patient follow up in 3 months for evaluation (3) Hypercholesterolemia: Code(s): E78.00 - Pure hypercholesterolemia, unspecified Category: Medical Plan: Encouraged dietary modifications and activity as tolerated We will repeat lipid panel in 3 months Plan Patient to return in 3 months. Complete preordered labs a week before appointment Orders: Orders Comprehensive [place]. Panel Fast 3 Months E11.65 - Type 2 diabetes mellitus with hyperglycemia, E78.00 - Pure hypercholesterolemia, unspecified, F32.9 - Major depressive disorder, single episode, unspecified, F41.9 - Anxiety disorder, unspecified, G47.33 - Obstructive sleep apnea (adult) (pediatric), I10 - Essential (primary) hypertension, R41.89 - Other symptoms and signs involving cognitive functions and awareness, R73.9 - Hyperglycemia, unspecified TSH reflex Free T4 3 Months E11.65 - Type 2 diabetes mellitus with hyperglycemia, E78.00 - Pure hypercholesterolemia, unspecified, F32.9 - Major depressive disorder, single episode, unspecified, F41.9 - Anxiety disorder, unspecified, G47.33 - Obstructive sleep apnea (adult) (pediatric), I10 - Essential (primary) hypertension, R41.89 - Other symptoms and signs involving cognitive functions and awareness, R73.9 - Hyperglycemia, unspecified UA CC w/rflx Micro + Cult 3 Months E11.65 - Type 2 diabetes mellitus with hyperglycemia, E78.00 - Pure hypercholesterolemia, unspecified, F32.9 - Major depressive disorder, single episode, unspecified, F41.9 - Anxiety disorder, unspecified, G47.33 - Obstructive sleep apnea (adult) (pediatric), I10 - Essential (primary) hypertension, R41.89 - Other symptoms and signs involving cognitive functions and awareness, R73.9 - Hyperglycemia, unspecified Hemoglobin A1c 3 Months E11.65 - Type 2 diabetes mellitus with hyperglycemia, E78.00 - Pure hypercholesterolemia, unspecified, F32.9 - Major depressive disorder, single episode, unspecified, F41.9 - Anxiety disorder, unspecified, G47.33 - Obstructive sleep apnea (adult) (pediatric), I10 - Essential (primary) hypertension, R41.89 - Other symptoms and signs involving cognitive functions and awareness, R73.9 - Hyperglycemia, unspecified Microalbumin, Random (w Creat) 3 Months E11.65 - Type 2 diabetes mellitus with hyperglycemia, E78.00 - Pure hypercholesterolemia, unspecified, F32.9 - Major depressive disorder, single episode, unspecified, F41.9 - Anxiety disorder, unspecified, G47.33 - Obstructive sleep apnea (adult) (pediatric), I10 - Essential (primary) hypertension, R41.89 - Other symptoms and signs involving cognitive functions and awareness, R73.9 - Hyperglycemia, unspecified AMB Random Glucose (hemocue) Today .65 - Type 2 diabetes mellitus with hyperglycemia Complete Blood Count Auto Diff 3 Months E11.65 - Type 2 diabetes mellitus with hyperglycemia, E78.00 - Pure hypercholesterolemia, unspecified, F32.9 - Major depressive disorder, single episode, unspecified, F41.9 - Anxiety disorder, unspecified, G47.33 - Obstructive sleep apnea (adult) (pediatric), I10 - Essential (primary) hypertension, R41.89 - Other symptoms and signs involving cognitive functions and awareness, R73.9 - Hyperglycemia, unspecified Lipid Panel 3 Months E11.65 - Type 2 diabetes mellitus with hyperglycemia, E78.00 - Pure hypercholesterolemia, unspecified, F32.9 - Major depressive disorder, single episode, unspecified, F41.9 - Anxiety disorder, unspecified, G47.33 - Obstructive sleep apnea (adult) (pediatric), I10 - Essential (primary) hypertension, R41.89 - Other symptoms and signs involving cognitive functions and awareness, R73.9 - Hyperglycemia, unspecified Vitamin D 25-OH Total 3 Months E11.65 - Type 2 diabetes mellitus with hyperglycemia, E78.00 - Pure hypercholesterolemia, unspecified, F32.9 - Major depressive disorder, single episode, unspecified, F41.9 - Anxiety disorder, unspecified, G47.33 - Obstructive sleep apnea (adult) (pediatric), I10 - Essential (primary) hypertension, R41.89 - Other symptoms and signs involving cognitive functions and awareness, R73.9 - Hyperglycemia, unspecified Medications: New lisinopril 5 mg PO DAILY 30 tabs 2RF
[2024-08-22 09:08] VITALS: BP 140/78; PULSE 88; RESP 16; TEMP 36.7; O2SAT 99; BMI 27.1
== END 2024-08-22 09:53 | disposition home or self-care (01) ==
LOC: HO.HMCH 08:59
DX: I10 Essential (primary) hypertension (principal); E11.65 Type 2 diabetes mellitus with hyperglycemia; E78.00 Pure hypercholesterolemia, unspecified

== ENCOUNTER → 2024-08-22 08:58 | Outpatient (BNVA) | payer OTHER, SELFPAY | DX: E11.65 Type 2 diabetes mellitus with hyperglycemia (principal); I10 Essential (primary) hypertension; E78.00 Pure hypercholesterolemia, unspecified; F32.9 Major depressive disorder, single episode, unspecified; F41.9 Anxiety disorder, unspecified; G47.33 Obstructive sleep apnea (adult) (pediatric); R41.89 Other symptoms and signs involving cognitive functions and awareness; Z71.89 Other specified counseling; Z79.4 Long term (current) use of insulin; Z79.84 Long term (current) use of oral hypoglycemic drugs | CPT/HCPCS: 82948 ==

== ENCOUNTER 2024-11-11 06:47 | Outpatient (REF) | payer OTHER, SELFPAY ==
[2024-11-11 07:20] LABS: MANUAL DIFF FLAG NO
[2024-11-11 07:37] LABS: Hematocrit 44.3 % (42.0-52.0); Hemoglobin 14.2 g/dl (14.0-18.0); Imm Gran Abs Auto 0.03 X10*3/uL (0.00-0.03); Imm Gran Pct Auto 0.4 % (0.0-0.4); Lymphocytes Absolute Auto 3.1 X10*3/uL (1.2-4.9); Mean Corpuscular HGB Conc 32.1 g/dl (31.0-36.0); Mean Corpuscular Hemoglobin 25.5 pg (27.0-33.0); Mean Corpuscular Volume 79.7 fL (80.0-98.0); NRBC Abs Auto 0.000 X10*3/uL (0.0-0.012); NRBC Pct Auto 0.0 /100WBC (0.0-0.2); Platelet Count 323 X10*3/uL (160-400); Red Blood Count 5.56 X10*6/uL (4.60-5.80); White Blood Count 7.7 X10*3/uL (4.8-10.8)
[2024-11-11 08:08] LABS: Appearance Urine Clear; Glucose Urine UA >=1000 mg/dL (Negative); PH 5.5 (5.0-9.0); Specific Gravity - Urine >= 1.030 (1.005-1.025); UMIC TRIGGER UACC YES
[2024-11-11 08:16] LABS: Alanine Aminotransferase 19 U/L (0-40); Albumin Level 4.5 g/dL (3.5-5.0); Alkaline Phosphatase 81 U/L (39-117); Anion Gap 11 (12-20); Aspartate Amino Transferase 20 U/L (5-37); Blood Urea Nitrogen 20 mg/dL (9-16); Calcium 9.3 mg/dL (8.4-10.2); Carbon Dioxide 27 mmol/L (22-29); Chloride 103 mmol/L (96-108); Cholesterol 182 mg/dL (<200); Estimated Glomerular Filt Rate > 60; HDL Cholesterol 40 mg/dL (>40); Potassium 4.2 mmol/L (3.3-5.1); Sodium 137 mmol/L (135-145); Total Protein 7.3 g/dL (6.5-8.0); Triglycerides 156 mg/dL (<150)
[2024-11-11 08:20] LABS: Hemoglobin A1C 431.2199 umol/L; Total Hemoglobin (HGBA1C) 3818.8260 umol/L
[2024-11-11 09:05] LABS: Microalbum/Creatinine Ratio Ur 48.9 ug/mg cr (<30)
== END 2024-11-11 06:48 | disposition home or self-care (01) ==
LOC: HO.LAB 06:47
DX: I10 Essential (primary) hypertension (principal); E11.65 Type 2 diabetes mellitus with hyperglycemia; R41.89 Other symptoms and signs involving cognitive functions and awareness; G47.33 Obstructive sleep apnea (adult) (pediatric); F41.9 Anxiety disorder, unspecified; F32.9 Major depressive disorder, single episode, unspecified; E78.00 Pure hypercholesterolemia, unspecified
CPT/HCPCS: 36415; 80053; 80061; 81001; 81003; 82043; 82306; 82570; 83036; 84443; 85025

== ENCOUNTER 2024-11-20 09:45 | Outpatient (AMB) | payer OTHER, SELFPAY ==
[2024-11-20 09:52] VITALS: BP 118/84; PULSE 71; RESP 16; TEMP 36.2; O2SAT 97; BMI 26.1
--- NOTE | 2024-11-20 09:52 | A.OFFPC_ITS ---
Vital Signs 11/20/24 09:52 Height 5 ft 5.25 in Weight 158 lb BMI 26.1 BP 118/84 Blood Pressure Location Lt brachial Position Sitting Respiration 16 Pulse 71 Pulse Source Pulse Oximeter Temp 97.1 F Temp Source Temporal Artery Scan Pulse Oximetry (%) 97 Oxygen Delivery Method Room Air Intake Visit Reasons: DM/HTN/HLD Allergies No Known Allergies Allergy (Verified 11/20/24 10:18) Medication List - Last Reconciled 11/20/24 by IGANCARLO Sanchez blood sugar diagnostic (FreeStyle Lite Strips) As directed check blood sugar 4 times a day blood-glucose meter (FreeStyle Lite Meter kit) As directed flash glucose sensor As directed check blood sugar 4 times a day insulin glargine (Lantus Solostar U-100 Insulin) 14 units (0.14 mL) subcut QAM lancets (FreeStyle Lancets) As directed check blood sugar 4 times a day lisinopril 5 mg PO DAILY metformin 1,000 mg (2 x 500 mg) PO BID 30 days pen needle, diabetic (BD Ultra-Fine Mini Pen Needle) As directed inject Tresiba once a day Tobacco use date assessed: 11/20/24 Dental Screening Dental Screen Date: 11/20/24 Did you have a dental visit in the last 12 months?: No Did you have a dental problem in the last 6 months where you did not have access to dental care?: No Was dental information given to patient?: Patient declined HPI DM/HTN/HLD HPI Details The patient is a 58-year-old male presenting with Type 2 Diabetes Mellitus. His Hemoglobin A1c has decreased from greater than 14% to 12.5%, indicating some improvement in glycemic control. He reports checking his blood glucose levels at home, primarily in the mornings, with readings in the 200s mg/dL. The patient admits to not following a specific diet but has been reducing portion sizes and avoiding fried foods. The patient has a history of hyperlipidemia, with current cholesterol levels slightly above the target range. He is aware that better glycemic control may help improve his lipid profile. The patient has been diagnosed with Vitamin D deficiency, which has not been addressed with supplementation. He acknowledges that addressing this deficiency may improve his energy levels. The patient also has psoriasis, which he previously managed with injections, but has not been using any treatment recently due to insurance changes. He reports extensive involvement of his back, which was previously managed with topical treatments applied by his . [facility] Medical History (Updated 11/20/24 @ 10:30 by GIANCARLO Sanchez) Obstructive sleep apnea Vitamin D deficiency Type 2 diabetes mellitus with hyperglycemia Anxiety and depression Psoriasis Hypercholesterolemia Surgical History History of cataract surgery History of gastric bypass Family History Father No problems noted. Mother Diabetes Son No problems noted. Son No problems noted. Daughter No problems noted. Social History Housing: Apartment Alcohol intake: never Patient Tobacco Use Status: Never used Tobacco e-Cigarette/Vaping Use: Never Used service: No Current occupational status: employed Current occupation: [employer] Cognitive needs: No Hearing needs: No Vision needs: Yes (Glasses) Questionnaire PHQ-9 Over the last 2 weeks, how often have you been bothered by any of the following problems? 1. Little interest or pleasure in doing things: not at all 2. Feeling down, depressed, or hopeless: not at all 3. Trouble falling or staying asleep, or sleeping too much: several days 4. Feeling tired or having little energy: not at all 5. Poor appetite or overeating: not at all 6. Feeling bad about yourself - or that you are a failure or have let yourself or your family down: not at all 7. Trouble concentrating on things, such as reading the newspaper or watching television: not at all 8. Moving or speaking so slowly that other people could have noticed. Or the opposite - being so fidgety or restless that you have been moving around a lot more than usual: not at all 9. Thoughts that you would be better off or of hurting yourself in some way: not at all Total score: 1 Depression Screening Interpretation: Negative Depression Screening Done: Yes Source: Developed by Drs. Raad Good, Edilma Helm, Urbano Patel and colleagues, with an educational sophia from [employer]. Thrive Questionnaire Date Thrive assessed: 07/25/24 I am a: Patient What is your living situation today?: I have a steady place to live Within the past 12 months, did the food you bought not last and you didn't have the money to get more?: Never true Within the past 12 months, did you worry whether your food would run out before you got money to buy more?: Never true Do you have trouble paying for medicines?: Yes Do you have trouble getting transportation to medical appointments?: No Do you have trouble paying your heating and electricity bill?: No Do you have trouble taking care of your child, family member or friend?: No Do you have trouble with day-to-day activities such as bathing, preparing meals, shopping, managing finances, etc.?: No Are you currently unemployed and looking for a job?: No Are you interested in more education?: No Please select the resources that you would like help with: Paying for medicine Currently or been in a relationship where the following occur: No concerns reported THRIVE Score: 0 AUDIT C Alcohol Use Questionnaire (AUDIT-C) 1. How often do you have a drink containing alcohol?: Never 3. How often do you have six or more drinks on one occasion?: Never Total Score: 0 Score Reviewed/Action Taken: No JONO-7 AMB Questionnaire JONO-7 Date JONO - 7 assessed: 07/25/24 Feeling nervous, anxious, or on edge: 0 = Not at all Not being able to stop or control worryin = Not at all Worrying too much about different things: 0 = Not at all Trouble relaxin = Not at all Being so restless that it is hard to sit still: 0 = Not at all Becoming easily annoyed or irritable: 0 = Not at all Feeling afraid as if something awful might happen: 0 = Not at all Total JONO-7 score (0-4 normal; 5-9 mild; 10-14 moderate; 15-21 severe): 0 Source: Developed by Drs. Raad Good, Edilma Helm, Urbano Patel and colleagues, with an educational sophia from [employer]. Review of Systems Const Denies headache(s) Eyes Denies loss of vision ENT Denies vertigo, Denies dizziness, Denies headache(s) and Denies sore throat Card Denies chest pain, Denies leg edema and Denies lightheadedness Resp Denies cough, Denies hemoptysis and Denies wheezing GI Denies abdominal pain, Denies melena, Denies constipation, Denies diarrhea and Denies vomiting Denies dysuria, Denies urinary frequency and Denies urinary urgency Musc Denies arthralgias, Denies joint swelling, Denies numbness and Denies tingling Skin/Breast Reports other (Psoriasis plaques widespread) Neuro Denies Abnormal speech present, Denies behavioral changes, Denies vertigo, Denies dizziness, Denies headache(s), Denies loss of vision, Denies memory loss, Denies numbness and Denies tingling Psych Denies anxiety, Denies behavioral changes, Denies depression, Denies memory loss and Denies panic attacks John/Lymph Denies easy bleeding and Denies easy bruising Aller/Immun Denies wheezing Physical exam (Primary Care) Vital Signs: Last Vital Signs Temp 97.1 F 11/20/24 09:52 Pulse 71 11/20/24 09:52 Resp 16 11/20/24 09:52 BP 118/84 11/20/24 09:52 Pulse Ox 97 11/20/24 09:52 Oxygen Delivery Method Room Air 11/20/24 09:52 BMI result Body Mass Index 26.1 Tobacco/Smoking Status: Tobacco use Status Tobacco use date assessed 11/20/24 11/20/24 09:56 Patient Tobacco Use Status Never used Tobacco 11/20/24 09:53 e-Cigarette/Vaping Use Never Used 11/20/24 09:53 PHQ-9: PHQ-9 Score PHQ-9: Total score 1 11/20/24 10:30 Depression Screening Interpretation: Negative Thrive Assessment: Date of Thrive Assessment Date Thrive assessed 07/25/24 11/20/24 09:53 Currently or been in a relationship where the following occur: No concerns reported Const General: healthy appearing, no acute distress, alert and awake Nutritional Appearance: well nourished Orientation/consciousness: oriented to person, oriented to place and oriented to time HENMT Ears: TM's normal bilaterally General nose exam: Normal nasal mucous membranes and turbinates present Eyes Conjunctivae: conjunctivae normal Sclerae: sclerae normal Pupils: Equal, round and reactive pupils present Neck Neck: Yes no lymphadenopathy and Yes no JVD Thyroid: Thyroid normal Carotids: no bruits Resp Effort & Inspection: normal respiratory effort and not tachypneic Auscultation: no crackles, no rales, no rhonchi and no wheezes Cardio Rate: regular rate Rhythm: regular rhythm Heart sounds: no murmurs and normal S1 and S2 GI Palpation (GI): Soft to palpation, nontender, no hepatomegaly and no splenomegaly Auscultation: normal bowel sounds Skin General skin exam: dry skin Lesions: lesion noted (Psoriasis plaques to elbows, forehead, chest, such as suggestion back, and ) Neuro General: oriented to person, oriented to place and oriented to time Cranial nerves: Yes Equal, round and reactive pupils present Speech: No Abnormal speech present Gait exam (Neuro): Normal gait present Motor exam (neuro): no tremor noted Extrem Right upper extremity: full ROM Left upper extremity: full ROM Right lower extremity: full ROM; no edema Left lower extremity: full ROM; no edema Psych Mental Status: mental status grossly normal Speech and movement: Normal speech and movement present Affect: normal affect Attitude: cooperative Thought process: Normal thought process present Results Reviewed Results Reviewed: Laboratory Tests 11/11/24 11/11/24 07:18 07:19 WBC 7.7 RBC 5.56 Hgb 14.2 Hct 44.3 MCV 79.7 L MCH 25.5 L MCHC 32.1 RDW 13.1 Plt Count 323 Sodium 137 Potassium 4.2 Chloride 103 Carbon Dioxide 27 Anion Gap 11 L BUN 20 H Creatinine 0.74 Estimated GFR > 60 Fasting Glucose 176 H Estimat Average Glucose 312 Hemoglobin A1c % 12.5 H Calcium 9.3 Total Bilirubin 0.6 AST 20 ALT 19 Alkaline Phosphatase 81 Total Protein 7.3 Albumin 4.5 Triglycerides 156 H Cholesterol 182 LDL Cholesterol, Calc 111 H HDL Cholesterol 40 L 25-OH Vitamin D Total 15.8 L TSH 1.95 Urine Color Yellow Urine Appearance Clear Urine pH 5.5 Ur Specific [place] >= 1.030 H Urine Protein Negative Urine Glucose (UA) >=1000 H Urine Ketones Negative Urine Blood Negative Urine Nitrite Negative Ur Leukocyte Esterase Negative Urine RBC 0-2 Urine WBC 0-5 Ur Squamous Epith Cells 0-2 Urine Bacteria None Seen Hyaline Casts 0-2 Urine Creatinine 97.99 Urine Microalbumin 48.0 Microalb/Creat Ratio 48.9 H Coding Level of Care Code Est Pt Level 4 (68614) Diagnoses Type 2 diabetes mellitus with hyperglycemia, without long-term current use of insulin E11.65 Diabetes mellitus prison insulin use: without prison use Vitamin D deficiency E55.9 Vision changes H53.9 Hypercholesterolemia E78.00 Hypertension, unspecified type I10 Hypertension type: unspecified Anxiety and depression F41.9; F32.9 Obstructive sleep apnea G47.33 Psoriasis L40.9 Time Spent (min) 38 Assessment & Plan Assessment & Plan (1) Type 2 diabetes mellitus with hyperglycemia: Code(s): E11.65 - Type 2 diabetes mellitus with hyperglycemia Category: Medical Qualifiers: Diabetes mellitus prison insulin use: without prison use Qualified Code(s): E11.65 - Type 2 diabetes mellitus with hyperglycemia (2) Vitamin D deficiency: Code(s): E55.9 - Vitamin D deficiency, unspecified Category: Medical (3) Vision changes: Code(s): H53.9 - Unspecified visual disturbance Category: Medical (4) Hypercholesterolemia: Code(s): E78.00 - Pure hypercholesterolemia, unspecified Category: Medical (5) Hypertension: Code(s): I10 - Essential (primary) hypertension Category: Medical Qualifiers: Hypertension type: unspecified Qualified Code(s): I10 - Essential (primary) hypertension (6) Anxiety and depression: Code(s): F41.9 - Anxiety disorder, unspecified; F32.9 - Major depressive disorder, single episode, unspecified Category: Medical (7) Obstructive sleep apnea: Code(s): G47.33 - Obstructive sleep apnea (adult) (pediatric) Category: Medical (8) Psoriasis: Code(s): L40.9 - Psoriasis, unspecified Category: Medical Plan The plan for managing Type 2 Diabetes Mellitus includes increasing the insulin dosage from 14 to 16 units to improve glycemic control. The patient is advised to continue monitoring blood glucose levels at home and to make dietary changes, such as reducing portion sizes and avoiding high-sugar foods, to further aid in managing his diabetes. For hyperlipidemia, the patient is informed that better control of blood glucose may help improve lipid levels, and he is encouraged to continue dietary modifications. Regarding Vitamin D deficiency, the patient is advised to consider supplementation to address low levels and potentially improve energy. For psoriasis, the patient is encouraged to explore topical treatments, as previous injections are no longer feasible due to insurance changes. Declined topical suggestion for psoriasis. Per patient, it is too much to apply and his ex- is no longer in the picture to assist him. Patient was informed and verbally consented to the use of an ambient scribe for clinic note documentation during this visit. Orders: Orders Comprehensive [place]. Panel Fast 3 Months E11.65 - Type 2 diabetes mellitus with hyperglycemia, E55.9 - Vitamin D deficiency, unspecified, E78.00 - Pure hypercholesterolemia, unspecified, F32.9 - Major depressive disorder, single episode, unspecified, F41.9 - Anxiety disorder, unspecified, G47.33 - Obstructive sleep apnea (adult) (pediatric), I10 - Essential (primary) hypertension, L40.9 - Psoriasis, unspecified Lipid Panel 3 Months E11.65 - Type 2 diabetes mellitus with hyperglycemia, E55.9 - Vitamin D deficiency, unspecified, E78.00 - Pure hypercholesterolemia, unspecified, F32.9 - Major depressive disorder, single episode, unspecified, F41.9 - Anxiety disorder, unspecified, G47.33 - Obstructive sleep apnea (adult) (pediatric), I10 - Essential (primary) hypertension, L40.9 - Psoriasis, unspecified Hemoglobin A1c 3 Months E11.65 - Type 2 diabetes mellitus with hyperglycemia, E55.9 - Vitamin D deficiency, unspecified, E78.00 - Pure hypercholesterolemia, unspecified, F32.9 - Major depressive disorder, single episode, unspecified, F41.9 - Anxiety disorder, unspecified, G47.33 - Obstructive sleep apnea (adult) (pediatric), I10 - Essential (primary) hypertension, L40.9 - Psoriasis, unspecified Vitamin D 25-OH Total 3 Months E11.65 - Type 2 diabetes mellitus with hyperglycemia, E55.9 - Vitamin D deficiency, unspecified, E78.00 - Pure hypercholesterolemia, unspecified, F32.9 - Major depressive disorder, single episode, unspecified, F41.9 - Anxiety disorder, unspecified, G47.33 - Obstructive sleep apnea (adult) (pediatric), I10 - Essential (primary) hypertension, L40.9 - Psoriasis, unspecified UA CC w/rflx Micro + Cult 3 Months E11.65 - Type 2 diabetes mellitus with hyperglycemia, E55.9 - Vitamin D deficiency, unspecified, E78.00 - Pure hypercholesterolemia, unspecified, F32.9 - Major depressive disorder, single episode, unspecified, F41.9 - Anxiety disorder, unspecified, G47.33 - Obstructive sleep apnea (adult) (pediatric), I10 - Essential (primary) hypert ension, L40.9 - Psoriasis, unspecified Medications: New cholecalciferol (vitamin D3) 50 mcg PO DAILY 90 caps 3RF Changed From insulin glargine (Lantus Solostar U-100 Insulin) 14 units (0.14 mL) subcut QAM 15 mL 3RF E11.65 - Type 2 diabetes mellitus with hyperglycemia, R73.9 - Hyperglycemia, unspecified To insulin glargine (Lantus Solostar U-100 Insulin) 16 units (0.16 mL) subcut QAM 15 mL 3RF E11.65 - Type 2 diabetes mellitus with hyperglycemia, R73.9 - Hyperglycemia, unspecified
== END 2024-11-20 10:41 | disposition home or self-care (01) ==
LOC: HO.HMCH 09:46
DX: E11.65 Type 2 diabetes mellitus with hyperglycemia (principal); E55.9 Vitamin D deficiency, unspecified; H53.9 Unspecified visual disturbance; E78.00 Pure hypercholesterolemia, unspecified; I10 Essential (primary) hypertension; F41.9 Anxiety disorder, unspecified; F32.9 Major depressive disorder, single episode, unspecified; G47.33 Obstructive sleep apnea (adult) (pediatric); L40.9 Psoriasis, unspecified

== ENCOUNTER 2025-02-17 07:15 | Outpatient (REF) | payer OTHER, SELFPAY ==
[2025-02-17 08:07] LABS: Appearance Urine Clear; Glucose Urine UA >=1000 mg/dL (Negative); PH 5.5 (5.0-9.0); Specific Gravity - Urine 1.025 (1.005-1.025); UMIC TRIGGER UACC YES
[2025-02-17 08:24] LABS: Alanine Aminotransferase 16 U/L (0-40); Albumin Level 4.4 g/dL (3.5-5.0); Alkaline Phosphatase 91 U/L (39-117); Anion Gap 12 (12-20); Aspartate Amino Transferase 22 U/L (5-37); Blood Urea Nitrogen 19 mg/dL (9-16); Calcium 9.2 mg/dL (8.4-10.2); Carbon Dioxide 27 mmol/L (22-29); Chloride 101 mmol/L (96-108); Cholesterol 173 mg/dL (<200); Estimated Glomerular Filt Rate > 60; HDL Cholesterol 35 mg/dL (>40); Potassium 4.5 mmol/L (3.3-5.1); Sodium 135 mmol/L (135-145); Total Protein 7.2 g/dL (6.5-8.0); Triglycerides 195 mg/dL (<150)
== END 2025-02-17 07:16 | disposition home or self-care (01) ==
LOC: HO.LAB 07:15
DX: E11.65 Type 2 diabetes mellitus with hyperglycemia (principal); G47.33 Obstructive sleep apnea (adult) (pediatric); F32.9 Major depressive disorder, single episode, unspecified; F41.9 Anxiety disorder, unspecified; E78.00 Pure hypercholesterolemia, unspecified; I10 Essential (primary) hypertension; L40.9 Psoriasis, unspecified; E55.9 Vitamin D deficiency, unspecified
CPT/HCPCS: 36415; 80053; 80061; 81001; 82306; 83036

== ENCOUNTER 2025-02-21 10:24 | Outpatient (AMB) | payer OTHER, SELFPAY ==
[2025-02-21 10:28] VITALS: BP 102/52; PULSE 111; RESP 18; O2SAT 100; BMI 26.3
--- NOTE | 2025-02-21 10:28 | A.OFFPC_ITS ---
Vital Signs 02/21/25 10:28 Height 5 ft 5.25 in Weight 159 lb 4 oz BMI 26.3 BP 102/52 L Blood Pressure Location Lt brachial Position Sitting Respiration 18 Pulse 111 H Pulse Source Pulse Oximeter Temp Source Temporal Artery Scan Pulse Oximetry (%) 100 Oxygen Delivery Method Room Air Intake Visit Reasons: dm/hld/htn/vit D Professional Athlete Required: No Allergies No Known Allergies Allergy (Verified 02/21/25 10:47) Medication List - Last Reconciled 02/21/25 by GIANCARLO Sanchez blood sugar diagnostic (FreeStyle Lite Strips) As directed check blood sugar 4 times a day blood-glucose meter (FreeStyle Lite Meter kit) As directed cholecalciferol (vitamin D3) 50 mcg PO DAILY flash glucose sensor As directed check blood sugar 4 times a day insulin glargine (Lantus Solostar U-100 Insulin) 16 units (0.16 mL) subcut QAM lancets (FreeStyle Lancets) As directed check blood sugar 4 times a day lisinopril 5 mg PO DAILY metformin 1,000 mg (2 x 500 mg) PO BID 30 days pen needle, diabetic (BD Ultra-Fine Mini Pen Needle) As directed inject Tresiba once a day Tobacco use date assessed: 02/21/25 Dental Screening Dental Screen Date: 02/21/25 Did you have a dental visit in the last 12 months?: No Did you have a dental problem in the last 6 months where you did not have access to dental care?: No Was dental information given to patient?: No HPI dm/hld/htn/vit D HPI Details Patient fasting glucose increased from 176 to 213 an A1c from 12.5 to 13%. On the patient previous visit his long-acting insulin was increased to 16 units. The patient reportedly been taking his insulin like every other day because he felt dizzy 1 day after taking the insulin. The patient explained that he took his insulin at 4 in the morning and went to work and did not eat until 09:00. The patient did not check his blood sugar when he felt dizzy to say if this was related. Explained to the patient that he can not fast when he is taking insulin and he should eat regularly. Reports that he was compliant with the p.o. medications. Patient reports seen Endocrine in the past but he has not in a long time. HLD-triglycerides increased for 156-195, LDL decreased from 111-99, HDL decreased from 40-35 mg/dL. Atorvastatin 10 mg started aid to decrease LDL to closer to 70 mg/dL. Reinforced foods low in cholesterol and activity as tolerated Vitamin-D zacaqzgmvr-qxmcdhq-U increased from 15.8-27.5, the patient is currently on cholecalciferol 50 mcg daily we will increase this to 100 mcg and recheck in 3 months. HTN: Reports medication compliance. Reinforced low-salt diet repaired continue lisinopril 5 mg daily. HPI Comments History of Present Illness Details Patient is a 59-year-old male presenting for diabetes mellitus, HLD, vitamin-D deficiency, htn follow up The patient [facility] Medical History Obstructive sleep apnea Vitamin D deficiency Type 2 diabetes mellitus with hyperglycemia Anxiety and depression Psoriasis Hypercholesterolemia Surgical History History of cataract surgery History of gastric bypass Family History Father No problems noted. Mother Diabetes Son No problems noted. Son No problems noted. Daughter No problems noted. Social History Housing: Apartment Alcohol intake: never Patient Tobacco Use Status: Never used Tobacco e-Cigarette/Vaping Use: Never Used service: No Current occupational status: employed Current occupation: [employer] at [employer] Cognitive needs: No Hearing needs: No Vision needs: Yes (Glasses) Questionnaire PHQ-9 Over the last 2 weeks, how often have you been bothered by any of the following problems? 1. Little interest or pleasure in doing things: not at all 2. Feeling down, depressed, or hopeless: not at all 3. Trouble falling or staying asleep, or sleeping too much: several days 4. Feeling tired or having little energy: not at all 5. Poor appetite or overeating: not at all 6. Feeling bad about yourself - or that you are a failure or have let yourself or your family down: not at all 7. Trouble concentrating on things, such as reading the newspaper or watching television: not at all 8. Moving or speaking so slowly that other people could have noticed. Or the opposite - being so fidgety or restless that you have been moving around a lot more than usual: not at all 9. Thoughts that you would be better off or of hurting yourself in some way: not at all Total score: 1 Depression Screening Interpretation: Negative Depression Screening Done: Yes Source: Developed by Drs. Raad Good, Edilma Helm, Urbano Patel and colleagues, with an educational sophia from [employer]. Thrive Questionnaire Date Thrive assessed: 02/21/25 I am a: Patient What is your living situation today?: I have a steady place to live Within the past 12 months, did the food you bought not last and you didn't have the money to get more?: Often true Within the past 12 months, did you worry whether your food would run out before you got money to buy more?: Often true Do you have trouble paying for medicines?: Yes Do you have trouble getting transportation to medical appointments?: No Do you have trouble paying your heating and electricity bill?: No Do you have trouble taking care of your child, family member or friend?: No Do you have trouble with day-to-day activities such as bathing, preparing meals, shopping, managing finances, etc.?: No Are you currently unemployed and looking for a job?: No Are you interested in more education?: No Please select the resources that you would like help with: Paying for medicine Currently or been in a relationship where the following occur: No concerns r eported THRIVE Score: 2 AUDIT C Alcohol Use Questionnaire (AUDIT-C) 1. How often do you have a drink containing alcohol?: Never 3. How often do you have six or more drinks on one occasion?: Never Total Score: 0 Score Reviewed/Action Taken: No JONO-7 AMB Questionnaire JONO-7 Date JONO - 7 assessed: 07/25/24 Feeling nervous, anxious, or on edge: 0 = Not at all Not being able to stop or control worryin = Not at all Worrying too much about different things: 0 = Not at all Trouble relaxin = Not at all Being so restless that it is hard to sit still: 0 = Not at all Becoming easily annoyed or irritable: 0 = Not at all Feeling afraid as if something awful might happen: 0 = Not at all Total JONO-7 score (0-4 normal; 5-9 mild; 10-14 moderate; 15-21 severe): 0 Source: Developed by Drs. Raad Good, Edilma Helm, Urbano Patel and colleagues, with an educational sophia from [employer]. Review of Systems Const Denies headache(s) Eyes Denies loss of vision ENT Denies vertigo, Denies dizziness, Denies headache(s) and Denies sore throat Card Denies chest pain, Denies leg edema and Denies lightheadedness Resp Denies cough, Denies hemoptysis and Denies wheezing GI Denies abdominal pain, Denies melena, Denies constipation, Denies diarrhea and Denies vomiting Denies dysuria, Denies urinary frequency and Denies urinary urgency Musc Denies arthralgias, Denies joint swelling, Denies numbness and Denies tingling Skin/Breast Reports other (Psoriasis plaques widespread) Neuro Denies Abnormal speech present, Denies behavioral changes, Denies vertigo, Denies dizziness, Denies headache(s), Denies loss of vision, Denies memory loss, Denies numbness and Denies tingling Psych Denies anxiety, Denies behavioral changes, Denies depression, Denies memory loss and Denies panic attacks John/Lymph Denies easy bleeding and Denies easy bruising Aller/Immun Denies wheezing Physical exam (Primary Care) Vital Signs: Last Vital Signs Pulse 111 H 02/21/25 10:28 Resp 18 02/21/25 10:28 BP 102/52 L 02/21/25 10:28 Pulse Ox 100 02/21/25 10:28 Oxygen Delivery Method Room Air 02/21/25 10:28 BMI result Body Mass Index 26.3 Tobacco/Smoking Status: Tobacco use Status Tobacco use date assessed 02/21/25 02/21/25 10:39 Patient Tobacco Use Status Never used Tobacco 02/21/25 10:39 e-Cigarette/Vaping Use Never Used 02/21/25 10:39 PHQ-9: PHQ-9 Score PHQ-9: Total score 1 02/21/25 10:39 Depression Screening Interpretation: Negative Thrive Assessment: Date of Thrive Assessment Date Thrive assessed 02/21/25 02/21/25 10:39 Currently or been in a relationship where the following occur: No concerns reported Narrative Physical Exam - Extremities: Visual inspection of feet revealed no cuts. Const General: healthy appearing, no acute distress, alert and awake Nutritional Appearance: well nourished Orientation/consciousness: oriented to person, oriented to place and oriented to time HENMT Ears: TM's normal bilaterally General nose exam: Normal nasal mucous membranes and turbinates present Eyes Conjunctivae: conjunctivae normal Sclerae: sclerae normal Pupils: Equal, round and reactive pupils present Neck Neck: Yes no lymphadenopathy and Yes no JVD Thyroid: Thyroid normal Carotids: no bruits Resp Effort & Inspection: normal respiratory effort and not tachypneic Auscultation: no crackles, no rales, no rhonchi and no wheezes Cardio Rate: regular rate Rhythm: regular rhythm Heart sounds: no murmurs and normal S1 and S2 GI Palpation (GI): Soft to palpation, nontender, no hepatomegaly and no splenomegaly Auscultation: normal bowel sounds Skin General skin exam: dry skin Lesions: lesion noted (Psoriasis plaques to elbows, forehead, chest, such as suggestion back, and ) Neuro General: oriented to person, oriented to place and oriented to time Cranial nerves: Yes Equal, round and reactive pupils present Speech: No Abnormal speech present Gait exam (Neuro): Normal gait present Motor exam (neuro): no tremor noted Extrem Right upper extremity: full ROM Left upper extremity: full ROM Right lower extremity: full ROM; no edema Left lower extremity: full ROM; no edema Psych Mental Status: mental status grossly normal Speech and movement: Normal speech and movement present Affect: normal affect Attitude: cooperative Thought process: Normal thought process present Coding Level of Care Code Est Pt Level 4 (06825) Diagnoses Type 2 diabetes mellitus with hyperglycemia, without long-term current use of insulin E11.65 Diabetes mellitus care home insulin use: without intermodal customer service use Vitamin D deficiency E55.9 Hypercholesterolemia E78.00 Hypertension, unspecified type I10 Hypertension type: unspecified Anxiety and depression F41.9; F32.9 Obstructive sleep apnea G47.33 Psoriasis L40.9 Time Spent (min) 36 Assessment & Plan Assessment & Plan (1) Type 2 diabetes mellitus with hyperglycemia: Code(s): E11.65 - Type 2 diabetes mellitus with hyperglycemia Category: Medical Qualifiers: Diabetes mellitus care home insulin use: without intermodal customer service use Qualified Code(s): E11.65 - Type 2 diabetes mellitus with hyperglycemia Plan: Patient fasting glucose increased from 176 to 213 an A1c from 12.5 to 13%. On the patient previous visit his long-acting insulin was increased to 16 units. The patient reportedly been taking his insulin like every other day because he felt dizzy 1 day after taking the insulin. The patient explained that he took his insulin at 4 in the morning and went to work and did not eat until 09:00. The patient did not check his blood sugar when he felt dizzy to say if this was related. Explained to the patient that he can not fast when he is taking insulin and he should eat regularly. Reports that he was compliant with the p.o. medications. Patient reports seen Endocrine in the past but he has not in a long time. Continue current insulin dosage. Endocrine referral placed (2) Vitamin D deficiency: Code(s): E55.9 - Vitamin D deficiency, unspecified Category: Medical Plan: Vitamin-D ndysbotroo-bpshaye-F increased from 15.8-27.5, the patient is currently on cholecalciferol 50 mcg daily we will increase this to 100 mcg and recheck in 3 months. (3) Hypercholesterolemia: Code(s): E78.00 - Pure hypercholesterolemia, unspecified Category: Medical Plan: HLD-triglycerides increased for 156-195, LDL decreased from 111-99, HDL decreased from 40-35 mg/dL. Atorvastatin 10 mg started aid to decrease LDL to closer to 70 mg/dL. Reinforced foods low in cholesterol and activity as tolerated (4) Hypertension: Code(s): I10 - Essential (primary) hypertension Category: Medical Qualifiers: Hypertension type: unspecified Qualified Code(s): I10 - Essential (primary) hypertension Plan: Reports medication compliance. Reinforced low-salt diet repaired continue lisinopril 5 mg daily. Systolic goal less 120 mm hg or less. (5) Anxiety and depression: Code(s): F41.9 - Anxiety disorder, unspecified; F32.9 - Major depressive disorder, single episode, unspecified Category: Medical Plan: Encouraged CBT Denies SI/HI (6) Obstructive sleep apnea: Code(s): G47.33 - Obstructive sleep apnea (adult) (pediatric) Category: Medical Plan: the patient has a history of sleep apnea, which was linked to previous obesity and treated with CPAP machine usage following bariatric surgery. The patient discontinued the use of a CPAP machine after weight loss associated with gastric bypass. (7) Psoriasis: Code(s): L40.9 - Psoriasis, unspecified Category: Medical Plan: For psoriasis, the patient is encouraged to explore topical treatments, as previous injections are no longer feasible due to insurance changes. Declined topical suggestion for psoriasis Plan Plan Patient was informed and verbally consented to the use of an ambient scribe for clinic note documentation during this visit. 1. Diabetes Mellitus, Type 2, With Hyperglycemia The patient's diabetes is severely uncontrolled, as evidenced by an A1c of 13% that is climbing. The elevated blood sugar is attributed to dietary indiscretion, including prolonged periods of fasting, and not hypoglycemia. The patient was counseled on the serious risks of uncontrolled diabetes, including damage to the heart and kidneys. The plan includes a referral to endocrinology for specialized management. A referral for diabetes education, specifically for meal planning, will also be placed. The patient was instructed to continue metformin and to take insulin daily. Emphasis was placed on the importance of regular meals, adequate fluid intake, and daily foot checks. Labs will be ordered, and follow-up is scheduled in 3 months for close monitoring. Discussion Notes I discussed the seriousness of the patient's uncontrolled diabetes, highlighting the very high and rising A1c of over 13%. I explained that this puts the patient at a significantly increased risk for developing complications such as heart disease, kidney damage, and stroke. I emphasized that the patient's symptoms are not from low blood sugar, but from dangerously high levels, likely related to inconsistent meal timing. I informed the patient that a referral will be made to an psychiatric secretary for specialty care and to a agricultural extension educator for meal planning. We will order labs and follow up in three months to ensure close m onitoring. Patient Instructions - Your blood sugar is very high, which is dangerous. - You must take your insulin every day as prescribed. - It is very important to eat regular meals and not go long periods without food. - Check the bottoms of your feet every day for any cuts or sores. - We are referring you to a employee placement specialist (an psychiatric secretary) for more help managing your condition. - We will also set you up with education on what foods to eat. - You will need to have new lab work done. - Please schedule a follow-up appointment in 3 months. Orders: Orders TSH reflex Free T4 3 Months E11.65 - Type 2 diabetes mellitus with hyperglycemia, E55.9 - Vitamin D deficiency, unspecified, E78.00 - Pure hypercholesterolemia, unspecified, F32.9 - Major depressive disorder, single episode, unspecified, F41.9 - Anxiety disorder, unspecified, I10 - Essential (primary) hypertension Vitamin D 25-OH Total 3 Months E11.65 - Type 2 diabetes mellitus with hyperglycemia, E55.9 - Vitamin D deficiency, unspecified, E78.00 - Pure hypercholesterolemia, unspecified, F32.9 - Major depressive disorder, single episode, unspecified, F41.9 - Anxiety disorder, unspecified, I10 - Essential (primary) hypertension Hemoglobin A1c 3 Months E11.65 - Type 2 diabetes mellitus with hyperglycemia, E55.9 - Vitamin D deficiency, unspecified, E78.00 - Pure hypercholesterolemia, unspecified, F32.9 - Major depressive disorder, single episode, unspecified, F41.9 - Anxiety disorder, unspecified, I10 - Essential (primary) hypertension Complete Blood Count Auto Diff 3 Months E11.65 - Type 2 diabetes mellitus with hyperglycemia, E55.9 - Vitamin D deficiency, unspecified, E78.00 - Pure hypercholesterolemia, unspecified, F32.9 - Major depressive disorder, single episode, unspecified, F41.9 - Anxiety disorder, unspecified, I10 - Essential (primary) hypertension Comprehensive [place]. Panel Fast 3 Months E11.65 - Type 2 diabetes mellitus with hyperglycemia, E55.9 - Vitamin D deficiency, unspecified, E78.00 - Pure hypercholesterolemia, unspecified, F32.9 - Major depressive disorder, single episode, unspecified, F41.9 - Anxiety disorder, unspecified, I10 - Essential (primary) hypertension Lipid Panel 3 Months E11.65 - Type 2 diabetes mellitus with hyperglycemia, E55.9 - Vitamin D deficiency, unspecified, E78.00 - Pure hypercholesterolemia, unspecified, F32.9 - Major depressive disorder, single episode, unspecified, F41.9 - Anxiety disorder, unspecified, I10 - Essential (primary) hypertension UA CC w/rflx Micro + Cult 3 Months E11.65 - Type 2 diabetes mellitus with hyperglycemia, E55.9 - Vitamin D deficiency, unspecified, E78.00 - Pure hypercholesterolemia, unspecified, F32.9 - Major depressive disorder, single episode, unspecified, F41.9 - Anxiety disorder, unspecified, I10 - Essential (primary) hypertension Referrals Endocrinology Referral E11.65 - Type 2 diabetes mellitus with hyperglycemia, R73.9 - Hyperglycemia, unspecified Medications: New omega 9-mci-gnt-fish oil 300-1,000 mg (Fish Oil) 1 cap PO DAILY 90 caps 3RF atorvastatin (Lipitor) 10 mg PO BEDTIME 90 tabs 3RF Changed From cholecalciferol (vitamin D3) 50 mcg PO DAILY 90 caps 3RF To cholecalciferol (vitamin D3) 100 mcg (2 x 50 mcg (2,000 unit)) PO DAILY 180 caps 3RF 90 days
== END 2025-02-21 11:09 | disposition home or self-care (01) ==
LOC: HO.HMCH 10:24
DX: E11.65 Type 2 diabetes mellitus with hyperglycemia (principal); E55.9 Vitamin D deficiency, unspecified; E78.00 Pure hypercholesterolemia, unspecified; I10 Essential (primary) hypertension; F41.9 Anxiety disorder, unspecified; F32.9 Major depressive disorder, single episode, unspecified; G47.33 Obstructive sleep apnea (adult) (pediatric); L40.9 Psoriasis, unspecified